=== PATIENT | female | born 1955 | race Caucasian/White ===

== ENCOUNTER 2021-10-11 08:09 | Outpatient (REF) | payer MEDICARE, SELFPAY ==
[2021-10-11 11:12] LABS: MANUAL DIFF FLAG NO
[2021-10-11 11:18] LABS: Appearance Urine TURBID; Color Urine YELLOW; Glucose Urine UA NEG (NEG); Leukocyte Esterase Urine NEG (NEG); Nitrite Urine NEG (NEG); PH 5.5 (5.0-8.0); Specific Gravity - Urine >= 1.030 (1.005-1.025); Urine Blood NEG (NEG); Urine Ketones 40 MG/DL (NEG); Urine Protein TRACE MG/DL (NEG-TRACE)
[2021-10-11 11:19] LABS: Basophils Percent Auto 0.4 % (0-2); Eosinophils Percent Auto 0.4 % (0-4); Hematocrit 41.9 % (37.0-47.0); Imm Gran Abs Auto 0.03 X10*3/uL (0.00-0.03); Imm Gran Pct Auto 0.4 % (0.0-0.4); Lymphocytes Absolute Auto 2.1 X10*3/uL (1.2-4.9); Lymphocytes Percent Auto 28.1 % (20-40); Mean Corpuscular HGB Conc 33.4 g/dl (31.0-35.0); Mean Corpuscular Hemoglobin 33.1 pg (27.0-33.0); Mean Corpuscular Volume 99.1 fL (80.0-98.0); Mean Platelet Volume 11.6 fL (9.4-12.3); Monocytes Absolute Auto 0.5 X10*3/uL (0.1-1.2); Monocytes Percent Auto 6.8 % (2-11); Neutrophils Absolute Auto 4.7 x10*3/uL (2.0-8.3); Neutrophils Percent Auto 63.9 % (45-73); Platelet Count 278 X10*3/uL (160-400); Red Blood Count 4.23 X10*6/uL (4.20-5.50); Red Cell Distribution Width 13.2 % (11.0-16.0); White Blood Count 7.4 X10*3/uL (4.8-10.8)
[2021-10-11 11:55] LABS: Alanine Aminotransferase 17 U/L (0-31); Albumin Level 4.7 g/dL (3.5-5.0); Alkaline Phosphatase 76 U/L (39-117); Anion Gap 18 (12-20); Aspartate Amino Transferase 14 U/L (5-31); Bilirubin Total 0.3 mg/dL (0.0-1.0); Blood Urea Nitrogen 11 mg/dL (9-16); Carbon Dioxide 20 mmol/L (22-29); Chloride 105 mmol/L (96-108); Cholesterol 226 mg/dL; Estimated Glomerular Filt Rate > 60; Glucose Fasting 117 mg/dL (60-99); HDL Cholesterol 61 mg/dL; LDL Cholesterol Calculated 115 mg/dl; Potassium 3.8 mmol/L (3.3-5.1); Sodium 139 mmol/L (135-145); Total Protein 7.4 g/dL (6.5-8.0); Triglycerides 252 mg/dL
== END 2021-10-11 08:10 | disposition home or self-care (01) ==
LOC: HO.HMGCLDS 08:09
PROVIDERS: PCP Internal Medicine; Visit Provider Internal Medicine
DX: E78.9 Disorder of lipoprotein metabolism, unspecified (principal); F13.20 Sedative, hypnotic or anxiolytic dependence, uncomplicated; F33.2 Major depressive disorder, recurrent severe without psychotic features; F41.9 Anxiety disorder, unspecified; I10 Essential (primary) hypertension; I73.9 Peripheral vascular disease, unspecified; R26.89 Other abnormalities of gait and mobility; R29.6 Repeated falls; Z76.89 Persons encountering health services in other specified circumstances
CPT/HCPCS: 36415; 80053; 80061; 81003; 84443; 85025

== ENCOUNTER 2022-06-03 10:17 | Outpatient (REF) | payer MEDICARE, SELFPAY ==
[2022-06-03 11:59] LABS: Alanine Aminotransferase 11 U/L (0-31); Albumin Level 4.7 g/dL (3.5-5.0); Alkaline Phosphatase 98 U/L (39-117); Anion Gap 15 (12-20); Aspartate Amino Transferase 11 U/L (5-31); Bilirubin Total 0.3 mg/dL (0.0-1.0); Blood Urea Nitrogen 11 mg/dL (9-16); Calcium 9.9 mg/dL (8.4-10.2); Carbon Dioxide 25 mmol/L (22-29); Chloride 106 mmol/L (96-108); Cholesterol 207 mg/dL; Estimated Glomerular Filt Rate > 60; Glucose Fasting 108 mg/dL (60-99); HDL Cholesterol 67 mg/dL; LDL Cholesterol Calculated 116 mg/dl; Potassium 4.8 mmol/L (3.3-5.1); Sodium 141 mmol/L (135-145); Total Protein 7.1 g/dL (6.5-8.0); Triglycerides 120 mg/dL
[2022-06-03 12:02] LABS: Estimated Average Glucose 108 mg/dL; Hemoglobin A1C 125.7971 umol/L; Hemoglobin A1c % 5.4 %
== END 2022-06-03 10:18 | disposition home or self-care (01) ==
LOC: HO.HMGCLDS 10:17
PROVIDERS: PCP Internal Medicine; Visit Provider Internal Medicine
DX: I10 Essential (primary) hypertension (principal); F41.9 Anxiety disorder, unspecified; F33.2 Major depressive disorder, recurrent severe without psychotic features; I73.9 Peripheral vascular disease, unspecified; E78.9 Disorder of lipoprotein metabolism, unspecified; R73.03 Prediabetes
CPT/HCPCS: 36415; 80053; 80061; 83036

== ENCOUNTER 2022-11-24 06:35 | Outpatient (REF) | payer MEDICARE, SELFPAY | END 2022-11-24 06:36 | disposition home or self-care (01) | LOC: HO.HMGCLDS 06:35 | PROVIDERS: PCP Internal Medicine; Visit Provider Internal Medicine | DX: E78.9 Disorder of lipoprotein metabolism, unspecified (principal); F33.2 Major depressive disorder, recurrent severe without psychotic features; F41.9 Anxiety disorder, unspecified; I10 Essential (primary) hypertension; I73.9 Peripheral vascular disease, unspecified; R73.03 Prediabetes | CPT/HCPCS: 36415; 80053; 80061; 83036; 85025 ==

== ENCOUNTER 2023-01-25 08:54 | Outpatient (AMB) | payer MEDICARE, SELFPAY ==
--- NOTE | 2023-01-25 08:57 | A.OFFVIS_ITS ---
Intake Vital Signs 01/25/23 08:59 Height 5 ft 4 in Weight 141 lb BMI 24.2 BP 110/58 L Blood Pressure Location Rt brachial Position Sitting Pulse 85 Pulse Source Pulse Oximeter Pulse Oximetry (%) 97 Oxygen Delivery Method Room Air Intake Visit Reasons: AWV [id number] Allergies No Known Allergies Allergy (Verified 01/25/23 09:01) Medication List - Last Reconciled 01/25/23 by Demetri Thomas MD amlodipine 5 mg PO DAILY buspirone 15 mg (1.5 x 10 mg) PO TID cilostazol 100 mg PO BID citalopram 40 mg PO DAILY clonidine HCl 0.1 mg PO BID PRN ezetimibe-simvastatin 10-10 mg 1 tab PO DAILY lorazepam 0.5 mg PO BID PRN Do you need a note to return to daycare/school/sports/work: No HPI HPI Comments History of Present Illness Details AWV Medical/social history reviewed Past medical history reviewed [place] of care / care team list updated Surgical/ hospitalization history reviewed Current medications including OTC and supplements reviewed Family history reviewed Tobacco controlled form updated Alcohol use form updated Illicit drug use in social history reviewed Current diagnosis of depression ?screening updated Appropriate PHQ 2/PHQ-9 completed . Vital signs reviewed Alcohol tobacco drug use reviewed and discussed . MMSE completed . ? Fall risk: ?Assessed Fall history: ?None Have you had any falls with injury in the past year?? No Have you had 2 or more falls in the past year?? No Fall risk assessment completed Home safety discussed with the patient Functional ability assessed and discussed and documented Activities of daily living reviewed and appropriate actions taken . HRA filled out by the patient and reviewed by provider and scanned . Appropriate written screening schedule established . Any health advise needed provided . Advance care planning discussed with the patient , necessary paperwork filled Examination IPPE/AWE: Balance intact Romberg intact Tandem walk FAILED walk-in turn intact rise from sit to stand intact . ?Hearing ?whisper test pass . Medication list reviewed, patient is stable on medications All other providers patient is seeing discussed and noted . PFSH Family History Brother Heart attack Sister Heart attack Father Diabetes Mother Mental health disorder Other Substance use disorder Social History Housing: House Patient Tobacco Use Status: Former Tobacco user e-Cigarette/Vaping Use: Never Used service: Yes Current occupational status: retired Cognitive needs: No Hearing needs: No Vision needs: Yes Questionnaire Medicare Wellness Checkup [age] What gender do you identify with?: female During the past 4 weeks, how much have you been bothered by emotional problems such as feeling anxious, depressed, irritable, sad or downhearted, and blue?: moderately During the past 4 weeks, has your physical & emotional health limited your social activities with family, friends, neighbors, or groups?: slightly During the past 4 weeks, how much bodily pain have you generally had?: no pain During the past 4 weeks, was someone available to help you if you needed & wanted help?: yes, as much as I wanted During the past 4 weeks, what was the hardest physical activity you could do for at least 2 minutes?: heavy Can you get to places out of walking distance without help? (For eg., can you travel alone on buses, taxis or drive your car?): Yes Can you go shopping for groceries or clothes without someone's help?: Yes Can you prepare your own meals?: Yes Can you do your housework without help?: Yes Because of any health problems, do you need the help of another person with your personal care needs such as eating, bathing, dressing or getting around the house?: No Can you handle your own money without help?: Yes During the past 4 weeks, how would you rate your health in general?: good During the past 4 weeks how have things been going for you?: good & bad parts about equal Are you having difficulties driving your car?: no Do you always fasten your seat belt when you are in a car?: yes, usually During past 4 weeks, have you been bothered by the following: never: Falling or dizzy when standing up, Sexual problems?, Trouble eating well?, Teeth or denture problems?, Problems using the telephone? and Tiredness or fatigue? Have you fallen 2 or more times in the past year?: No Are you afraid of falling?: Yes Are you a smoker?: no During the past 4 weeks, how many drinks of wine, beer, or other alcoholic beverages did you have?: 1 drink or less per week Do you exercise for about 20 minutes 3 or more times a week?: yes, some of the time Have you been given information to help with the following?: yes: Keeping track of your medications? and no: Hazards in your house that might hurt you? How often do you have trouble taking medicines the way you have been told to take them?: I always take medicine as prescribed How confident are you that you can control & manage most of your health problems?: very confident What is your race?: White Mini Mental State Exam (MMSE) Orientation What is the (year) (season) (date) (day) (month)?: year, season, date, day and month Where are we (state) (county) (town or city) (hospital) (floor)?: state, county, town or city, hospital/clinic and floor Score Score: 10 Activity of Daily Living Bathing - sponge bath, tub bath or shower: receives no assistance (gets in/out by self, if usual bathing means Dressing - getting clothes from closets & drawers, including inner/outer garments & fasteners.: gets clothes & gets completely dressed without help Toileting - going to the 'toilet room' for urine/bowel elimination & cleaning self/arranging clothes: goes to toilet room, cleans self, arranges clothes without help Transfer: moves in & out of bed and chair without help (may use support object) Continence: controls urination/bowel movements completely by self Feeding: feeds self without help Total Score: 0 Information obtained from: patient Using telephone: independent Traveling: independent Shopping: independent Preparing meals: independent Housework: independent Taking medicine: independent Managing money: independent PHQ-9 Over the last 2 weeks, how often have you been bothered by any of the following problems? 1. Little interest or pleasure in doing things: several days 2. Feeling down, depressed, or hopeless: several days 3. Trouble falling or staying asleep, or sleeping too much: not at all 4. Feeling tired or having little energy: not at all 5. Poor appetite or overeating: not at all 6. Feeling bad about yourself - or that you are a failure or have let yourself or your family down: not at all 7. Trouble concentrating on things, such as reading the newspaper or watching television: not at all 8. Moving or speaking so slowly that other people could have noticed. Or the opposite - being so fidgety or restless that you have been moving around a lot more than usual: not at all 9. Thoughts that you would be better off or of hurting yourself in some way: not at all Total score: 2 Depression Screening Interpretation: Negative 51058 - PHQ-9 Billing: Yes Source: Developed by Drs. Xiang Arguelles, Karol Powell, Martir Jones and colleagues, with an educational elsa from [employer]. Physical Exam Vital Signs: Last Vital Signs Pulse 85 01/25/23 08:59 BP 110/58 L 01/25/23 08:59 Pulse Ox 97 01/25/23 08:59 Oxygen Delivery Method Room Air 01/25/23 08:59 BMI result Body Mass Index 24.2 Assessment & Plan Assessment & Plan (1) Hypertension, essential: Code(s): I10 - Essential (primary) hypertension (2) Lipid disorder: Code(s): E78.9 - Disorder of lipoprotein metabolism, unspecified (3) Medicare annual wellness visit, initial: Code(s): Z00.00 - Encounter for general adult medical examination without abnormal findings Orders: Orders Comprehensive [place]. Panel Fast Today E78.9 - Disorder of lipoprotein metabolism, unspecified, I10 - Essential (primary) hypertension Lipid Panel Today E78.9 - Disorder of lipoprotein metabolism, unspecified, I10 - Essential (primary) hypertension Complete Blood Count Auto Diff Today E78.9 - Disorder of lipoprotein metabolism, unspecified, I10 - Essential (primary) hypertension Medications: Resumed amlodipine 5 mg PO DAILY 90 tabs 0RF amlodipine 5 mg PO DAILY 90 tabs 0RF Quality Reporting (2019) Depression/Bipolar (159/160/161/177) PHQ-9: Total score: 2 Coding Level of Care Code Medicare First (G0438) Diagnoses Hypertension, essential I10 Lipid disorder E78.9 Medicare annual wellness visit, initial Z00.00 CPT Codes Advance Care Planning - Time spent: 1-15 minutes, on File ([id number]) Advance Care Planning Advance Care Planning discussion: Completed/Scanned Date of discussion: 01/25/23 Forms completed: [facility] Time spent: 1-15 minutes, on File
[2023-01-25 08:59] VITALS: BP 110/58; PULSE 85; O2SAT 97; BMI 24.2
== END 2023-01-25 10:59 | disposition home or self-care (01) ==
PROVIDERS: Visit Provider Internal Medicine
DX: I10 Essential (primary) hypertension (principal); E78.9 Disorder of lipoprotein metabolism, unspecified; Z00.00 Encounter for general adult medical examination without abnormal findings
CPT/HCPCS: 1123F; G0438

== ENCOUNTER 2023-05-27 08:35 | Outpatient (REF) | payer MEDICARE, SELFPAY ==
[2023-05-27 11:42] LABS: Alanine Aminotransferase 13 U/L (0-31); Albumin Level 4.3 g/dL (3.5-5.0); Alkaline Phosphatase 89 U/L (39-117); Anion Gap 12 (12-20); Aspartate Amino Transferase 15 U/L (5-31); Bilirubin Total 0.4 mg/dL (0.0-1.0); Blood Urea Nitrogen 10 mg/dL (9-16); Calcium 9.5 mg/dL (8.4-10.2); Carbon Dioxide 27 mmol/L (22-29); Chloride 104 mmol/L (96-108); Cholesterol 224 mg/dL (<200); Estimated Glomerular Filt Rate > 60; Glucose Fasting 96 mg/dL (60-99); HDL Cholesterol 80 mg/dL (>40); LDL Cholesterol Calculated 117 mg/dL (<100); Potassium 4.4 mmol/L (3.3-5.1); Sodium 139 mmol/L (135-145); Total Protein 7.3 g/dL (6.5-8.0); Triglycerides 136 mg/dL (<150)
[2023-05-29 23:24] LABS: LDL Cholesterol Direct 121 mg/dL (<100)
== END 2023-05-27 08:36 | disposition home or self-care (01) ==
LOC: HO.HMGCLDS 08:35
PROVIDERS: PCP Internal Medicine; Visit Provider Internal Medicine
DX: I10 Essential (primary) hypertension (principal); F41.9 Anxiety disorder, unspecified; F33.2 Major depressive disorder, recurrent severe without psychotic features; E78.9 Disorder of lipoprotein metabolism, unspecified; R73.03 Prediabetes
CPT/HCPCS: 36415; 80053; 80061; 83721; 85025

== ENCOUNTER 2023-05-30 08:33 | Outpatient (AMB) | payer MEDICARE, SELFPAY ==
[2023-05-30 08:43] VITALS: BP 108/62; PULSE 84; O2SAT 96; BMI 24.5
--- NOTE | 2023-05-30 08:43 | MHC.PC.OV ---
Vital Signs 05/30/23 08:43 Height 5 ft 4 in Weight 142 lb 8 oz BMI 24.5 BP 108/62 Blood Pressure Location Lt brachial Position Sitting Pulse 84 Pulse Source Pulse Oximeter Pulse Oximetry (%) 96 Oxygen Delivery Method Room Air Intake Visit Reasons: 6 month follow up anxiety Allergies No Known Allergies Allergy (Verified 05/30/23 08:46) Medication List - Last Reconciled 05/30/23 by Demetri Thomas MD amlodipine 5 mg PO DAILY buspirone 15 mg (1.5 x 10 mg) PO TID cilostazol 100 mg PO BID citalopram 40 mg PO DAILY ezetimibe-simvastatin 10-10 mg 1 tab PO DAILY lorazepam 0.5 mg PO BID PRN Tobacco use date assessed: 05/30/23 Fall risk assessment: No Falls in past year Last assessed Fall Risk: 05/30/23 Dental Screening Dental Screen Date: 05/30/23 Did you have a dental visit in the last 12 months?: No Did you have a dental problem in the last 6 months where you did not have access to dental care?: No Was dental information given to patient?: No HPI 6 month follow up anxiety HPI Details Patient is 68-year-old female, this is a regular follow-up visit.? Patient have a history of severe anxiety depression currently seeing psychiatrist all psych medications through them, patient is benzodiazepine dependent, she is also on buspirone and citalopram Pre diabetes: Controlling diet Hypertension : Stable Lipid disorder:? Patient is on simvastatin and Zetia 10 mg each.? History of total hysterectomy, she does have an OBGYN doctor [facility], mammograms through them Colonoscopy was 6 years ago it was normal as per patient she is not due until 2025. Peripheral vascular disease patient is on cilostazol 100 mg b.i.d..? Doing well no cramps or pain in legs, refill sent only 2 meds from PCP office simvastatin and cilostazol Follow-up in September labs are needed before visit PFSH Family History Brother Heart attack Sister Heart attack Father Diabetes Mother Mental health disorder Other Substance use disorder Social History Housing: House Patient Tobacco Use Status: Former Tobacco user e-Cigarette/Vaping Use: Never Used service: Yes Current occupational status: retired Cognitive needs: No Hearing needs: No Vision needs: Yes Questionnaire PHQ-9 Over the last 2 weeks, how often have you been bothered by any of the following problems? 1. Little interest or pleasure in doing things: several days 2. Feeling down, depressed, or hopeless: several days 3. Trouble falling or staying asleep, or sleeping too much: several days 4. Feeling tired or having little energy: several days 5. Poor appetite or overeating: not at all 6. Feeling bad about yourself - or that you are a failure or have let yourself or your family down: not at all 7. Trouble concentrating on things, such as reading the newspaper or watching television: not at all 8. Moving or speaking so slowly that other people could have noticed. Or the opposite - being so fidgety or restless that you have been moving around a lot more than usual: not at all 9. Thoughts that you would be better off or of hurting yourself in some way: not at all Total score: 4 Depression Screening Interpretation: Negative Depression Screening Done: Yes 23303 - PHQ-9 Billing: Yes Source: Developed by Drs. Xiang Arguelles, Karol Powell, Martir Jones and colleagues, with an educational elsa from [employer]. Thrive Questionnaire Date Thrive assessed: 05/30/23 I am a: Patient What is your living situation today?: I have a steady place to live Within the past 12 months, did the food you bought not last and you didn't have the money to get more?: Never true Within the past 12 months, did you worry whether your food would run out before you got money to buy more?: Never true Do you have trouble paying for medicines?: No Do you have trouble getting transportation to medical appointments?: No Do you have trouble paying your heating and electricity bill?: No Do you have trouble taking care of your child, family member or friend?: No Do you have trouble with day-to-day activities such as bathing, preparing meals, shopping, managing finances, etc.?: No Are you currently unemployed and looking for a job?: No Are you interested in more education?: No Please select the resources that you would like help with: None Currently or been in a relationship where the following occur: no concerns reported AUDIT C Alcohol Use Questionnaire (AUDIT-C) 1. How often do you have a drink containing alcohol?: Never 3. How often do you have six or more drinks on one occasion?: Never Total Score: 0 Score Reviewed/Action Taken: Yes ANABEL-7 AMB Questionnaire ANABEL-7 Date ANABEL - 7 assessed: 05/30/23 Feeling nervous, anxious, or on edge: 1 = Several days Not being able to stop or control worryin = Several days Worrying too much about different things: 1 = Several days Trouble relaxin = Several days Being so restless that it is hard to sit still: 1 = Several days Becoming easily annoyed or irritable: 1 = Several days Feeling afraid as if something awful might happen: 1 = Several days Total ANABEL-7 score (0-4 normal; 5-9 mild; 10-14 moderate; 15-21 severe): 7 Source: Developed by Drs. Xiang Arguelles, Karol Powell, Martir Jones and colleagues, with an educational elsa from [employer]. ANABEL-7 Assessment Billing ANABEL-7 Assessment Tool: ANABEL-7 Assessment 69907 Review of Systems Const Denies chills and Denies fever(s) ENT Denies epistaxis and Denies nasal discharge Card Denies chest pain Resp Denies chest congestion, Denies cough and Denies hemoptysis GI Denies diarrhea and Denies nausea Skin/Breast Denies rash Neuro Reports no additional complaints Psych Reports no additional complaints Endo Reports no additional complaints Physical exam (Primary Care) Vital Signs: Last Vital Signs Pulse 84 05/30/23 08:43 BP 108/62 05/30/23 08:43 Pulse Ox 96 05/30/23 08:43 Oxygen Delivery Method Room Air 05/30/23 08:43 BMI result Body Mass Index 24.5 Tobacco/Smoking Status: Tobacco use Status Tobacco use date assessed 05/30/23 05/30/23 08:46 Patient Tobacco Use Status Former Tobacco user 05/30/23 08:43 e-Cigarette/Vaping Use Never Used 05/30/23 08:43 PHQ-9: PHQ-9 Score PHQ-9: Total score 4 05/30/23 10:08 Depression Screening Interpretation: Negative Thrive Assessment: Date of Thrive Assessment Date Thrive assessed 05/30/23 05/30/23 09:11 Currently or been in a relationship where the following occur: no concerns reported Const General: cooperative, comfortable and no acute distress Orientation/consciousness: patient oriented x3 HENMT Head: Yes normocephalic Eyes General: appearance normal, both eyes and all related structures Neck Neck: Yes supple Resp Effort & Inspection: normal respiratory effort, no cough and no stridor Cardio Rhythm: regular rhythm Heart sounds: S1 normal heart sound present and S2 normal heart sound present Skin General skin exam: turgor normal Neuro General: patient oriented x3, tone normal and moves all extremities Extrem Right lower extremity: no edema Left lower extremity: no edema Assessment and Plan Assessment & Plan (1) Hypertension, essential: Code(s): I10 - Essential (primary) hypertension (2) Severe anxiety: Code(s): F41.9 - Anxiety disorder, unspecified (3) Depression, major, severe recurrence: Code(s): F33.2 - Major depressive disorder, recurrent severe without psychotic features Qualifiers: Psychotic features: without psychotic features Qualified Code(s): F33.2 - Major depressive disorder, recurrent severe without psychotic features (4) Peripheral vascular disease: Code(s): I73.9 - Peripheral vascular disease, unspecified (5) Lipid disorder: Code(s): E78.9 - Disorder of lipoprotein metabolism, unspecified (6) Benzodiazepine dependence: Code(s): F13.20 - Sedative, hypnotic or anxiolytic dependence, uncomplicated (7) Pre-diabetes: Code(s): R73.03 - Prediabetes Plan Patient is 68-year-old female, this is a regular follow-up visit.? Patient have a history of severe anxiety depression currently seeing psychiatrist all psych medications through them, patient is benzodiazepine dependent, she is also on buspirone and citalopram Pre diabetes: Controlling diet Hypertension : Stable Lipid disorder:? Patient is on simvastatin and Zetia 10 mg each.? History of total hysterectomy, she does have an OBGYN doctor [facility]ette, mammograms through them Colonoscopy was 6 years ago it was normal as per patient she is not due until 2025. Peripheral vascular disease patient is on cilostazol 100 mg b.i.d..? Doing well no cramps or pain in legs, refill sent only 2 meds from PCP office simvastatin and cilostazol Follow-up in September labs are needed before visit Orders: Orders Comprehensive Met. Panel Today E78.9 - Disorder of lipoprotein metabolism, unspecified, F13.20 - Sedative, hypnotic or anxiolytic dependence, uncomplicated, F33.2 - Major depressive disorder, recurrent severe without psychotic features, F41.9 - Anxiety disorder, unspecified, I10 - Essential (primary) hypertension, I73.9 - Peripheral vascular disease, unspecified, R73.03 - Prediabetes Complete Blood Count Auto Diff 3 Months E78.9 - Disorder of lipoprotein metabolism, unspecified, F13.20 - Sedative, hypnotic or anxiolytic dependence, uncomplicated, F33.2 - Major depressive disorder, recurrent severe without psychotic features, F41.9 - Anxiety disorder, unspecified, I10 - Essential (primary) hypertension, I73.9 - Peripheral vascular disease, unspecified, R73.03 - Prediabetes LDL Cholesterol Direct Today E78.9 - Disorder of lipoprotein metabolism, unspecified, F13.20 - Sedative, hypnotic or anxiolytic dependence, uncomplicated, F33.2 - Major depressive disorder, recurrent severe without psychotic features, F41.9 - Anxiety disorder, unspecified, I10 - Essential (primary) hypertension, I73.9 - Peripheral vascular disease, unspecified, R73.03 - Prediabetes Medications: Changed From cilostazol 100 mg PO BID To cilostazol 100 mg PO BID 180 tabs 0RF 90 days Coding Level of Care Code Est Pt Level 4 (71811) Diagnoses Hypertension, essential I10 Severe anxiety F41.9 Severe episode of recurrent major depressive disorder, without psychotic features F33.2 Psychotic features: without psychotic features Peripheral vascular disease I73.9 Lipid disorder E78.9 Benzodiazepine dependence F13.20 Pre-diabetes R73.03 Additional Codes ANABEL-7 Assessment Billing - ANABEL-7 Assessment Tool: ANABEL-7 Assessment [id number] ([id number])
== END 2023-05-30 09:44 | disposition home or self-care (01) ==
PROVIDERS: PCP Internal Medicine; Visit Provider Internal Medicine
DX: I73.9 Peripheral vascular disease, unspecified (principal); F13.20 Sedative, hypnotic or anxiolytic dependence, uncomplicated; F33.2 Major depressive disorder, recurrent severe without psychotic features; I10 Essential (primary) hypertension; F41.9 Anxiety disorder, unspecified; E78.9 Disorder of lipoprotein metabolism, unspecified; R73.03 Prediabetes
CPT/HCPCS: 99214

== ENCOUNTER 2023-09-26 09:04 | Outpatient (REF) | payer MEDICARE, SELFPAY ==
[2023-09-26 10:16] LABS: MANUAL DIFF FLAG NO
[2023-09-26 10:31] LABS: Basophils Percent Auto 0.5 % (0-2); Eosinophils Percent Auto 0.3 % (0-4); Hematocrit 40.8 % (37.0-47.0); Hemoglobin 13.8 g/dl (12.0-16.0); Imm Gran Abs Auto 0.05 X10*3/uL (0.00-0.03); Imm Gran Pct Auto 0.6 % (0.0-0.4); Lymphocytes Absolute Auto 2.4 X10*3/uL (1.2-4.9); Lymphocytes Percent Auto 26.7 % (20-40); Mean Corpuscular HGB Conc 33.8 g/dl (31.0-35.0); Mean Corpuscular Hemoglobin 32.8 pg (27.0-33.0); Mean Corpuscular Volume 96.9 fL (80.0-98.0); Mean Platelet Volume 10.8 fL (9.4-12.3); Monocytes Absolute Auto 0.7 X10*3/uL (0.1-1.2); Monocytes Percent Auto 7.3 % (2-11); Neutrophils Absolute Auto 5.7 x10*3/uL (2.0-8.3); Neutrophils Percent Auto 64.6 % (45-73); Platelet Count 319 X10*3/uL (160-400); Red Blood Count 4.21 X10*6/uL (4.20-5.50); Red Cell Distribution Width 13.6 % (11.0-16.0); White Blood Count 8.9 X10*3/uL (4.8-10.8)
== END 2023-09-26 09:05 | disposition home or self-care (01) ==
LOC: HO.HMGCLDS 09:04
PROVIDERS: PCP Internal Medicine; Visit Provider Internal Medicine
DX: I10 Essential (primary) hypertension (principal); F41.9 Anxiety disorder, unspecified; F33.2 Major depressive disorder, recurrent severe without psychotic features; I73.9 Peripheral vascular disease, unspecified; E78.9 Disorder of lipoprotein metabolism, unspecified; F13.20 Sedative, hypnotic or anxiolytic dependence, uncomplicated; R73.03 Prediabetes
CPT/HCPCS: 36415; 85025

== ENCOUNTER 2023-09-27 08:34 | Outpatient (AMB) | payer MEDICARE, SELFPAY ==
[2023-09-27 08:36] VITALS: BP 114/72; PULSE 84; O2SAT 95; BMI 25.1
--- NOTE | 2023-09-27 08:36 | A.OFFPC_ITS ---
Vital Signs 09/27/23 08:36 Height 5 ft 4 in Weight 146 lb 6 oz BMI 25.1 BP 114/72 Blood Pressure Location Rt brachial Position Sitting Pulse 84 Pulse Source Pulse Oximeter Pulse Oximetry (%) 95 Oxygen Delivery Method Room Air Intake Visit Reasons: 4 month fu Allergies No Known Allergies Allergy (Verified 09/27/23 08:39) Medication List - Last Reconciled 09/27/23 by Demetri Thomas MD amlodipine 5 mg PO DAILY buspirone 15 mg (1.5 x 10 mg) PO TID cilostazol 100 mg PO BID 90 days citalopram 40 mg PO DAILY ezetimibe-simvastatin 10-10 mg 1 tab PO DAILY lorazepam 0.5 mg PO BID PRN Tobacco use date assessed: 09/27/23 Fall risk assessment: No Falls in past year Last assessed Fall Risk: 09/27/23 Dental Screening Dental Screen Date: 09/27/23 Did you have a dental visit in the last 12 months?: No Did you have a dental problem in the last 6 months where you did not have access to dental care?: No Was dental information given to patient?: No HPI 4 month fu HPI Details Patient is 68-year-old female, this is a regular follow-up visit.? Patient says that she has been having chest pain off and on for the past 1 month Patient could not tell me if it is related to activities or eating She is also complaining of fecal incontinence since May off and on Patient says that when she coughs or laughs little bit of stool comes out She is due for a colonoscopy 2025, last colonoscopy was within normal limit as per patient I have placed referral to Colorectal for evaluation EKG done today showed no acute T or ST findings, possible left atrial enlargement I have ordered echocardiogram for the patient and I will also refer her to Cardiology for further evaluation since she does have history of high lipids and hypertension Meanwhile I am also prescribing PPI for patient Patient have a history of severe anxiety depression currently seeing psychiatrist all psych medications through them, patient is benzodiazepine dependent, she is also on buspirone and citalopram Pre diabetes: Controlling diet Hypertension : Stable Lipid disorder:? Patient is on simvastatin and Zetia 10 mg each.? History of total hysterectomy, she does have an OBGYN doctor Lanette, mammograms through them Peripheral vascular disease patient is on cilostazol 100 mg b.i.d..? Doing well no cramps or pain in legs, refill sent meds from PCP office simvastatin and cilostazol and amlodipine Follow-up January for Medicare wellness visit, and 3 weeks for chest discomfort after starting PPI telemedicine [facility] Family History Brother Heart attack Sister Heart attack Father Diabetes Mother Mental health disorder Other Substance use disorder Social History Housing: House Patient Tobacco Use Status: Former Tobacco user e-Cigarette/Vaping Use: Never Used service: Yes Current occupational status: retired Cognitive needs: No Hearing needs: No Vision needs: Yes Questionnaire Thrive Questionnaire Date Thrive assessed: 05/30/23 AUDIT C Alcohol Use Questionnaire (AUDIT-C) 1. How often do you have a drink containing alcohol?: Monthly or less 2. How many drinks containing alcohol do you have on a typical day when you are drinking?: 1 or 2 3. How often do you have six or more drinks on one occasion?: Never Total Score: 1 Score Reviewed/Action Taken: Yes ANABEL-7 AMB Questionnaire ANABEL-7 Date ANABEL - 7 assessed: 05/30/23 Source: Developed by Drs. Xiang Arguelles, Karol Powell, Martir Jones and colleagues, with an educational elsa from [employer]. Review of Systems Const Denies chills and Denies fever(s) Eyes Denies blurry vision and Denies eye pain ENT Denies epistaxis, Denies nasal discharge, Denies throat swelling and Denies tongue swelling Card Denies paroxysmal nocturnal dyspnea Resp Denies chest congestion, Denies cough and Denies hemoptysis GI Denies diarrhea and Denies nausea Musc Reports as per HPI Skin/Breast Denies rash Neuro Reports no additional complaints Psych Reports no additional complaints Endo Reports no additional complaints Aller/Immun Denies throat swelling and Denies tongue swelling Physical exam (Primary Care) Vital Signs: Last Vital Signs Pulse 84 09/27/23 08:36 BP 114/72 09/27/23 08:36 Pulse Ox 95 09/27/23 08:36 Oxygen Delivery Method Room Air 09/27/23 08:36 BMI result Body Mass Index 25.1 Tobacco/Smoking Status: Tobacco use Status Tobacco use date assessed 09/27/23 09/27/23 08:39 Patient Tobacco Use Status Former Tobacco user 09/27/23 08:39 e-Cigarette/Vaping Use Never Used 09/27/23 08:39 Thrive Assessment: Date of Thrive Assessment Date Thrive assessed 05/30/23 09/27/23 08:39 Const General: cooperative, comfortable and no acute distress Orientation/consciousness: patient oriented x3 HENMT Head: Yes normocephalic Ears: hearing grossly normal bilaterally Eyes General: appearance normal, both eyes and all related structures Neck Neck: Yes supple Resp Effort & Inspection: normal respiratory effort, no cough and no stridor Cardio Rhythm: regular rhythm Heart sounds: S1 normal heart sound present and S2 normal heart sound present GI Palpation (GI): Soft to palpation and nontender Auscultation: normal bowel sounds Skin General skin exam: turgor normal Neuro General: patient oriented x3, tone normal and moves all extremities Gait exam (Neuro): Normal gait present Extrem Right lower extremity: no edema Left lower extremity: no edema Psych Affect: normal affect Attitude: cooperative Office Procedures EKG [id number], Complete Assessment and Plan Assessment & Plan (1) Stool incontinence: Code(s): R15.9 - Full incontinence of feces Qualifiers: Fecal incontinence type: fecal smearing Qualified Code(s): R15.1 - Fecal smearing (2) Chest pain: Code(s): R07.9 - Chest pain, unspecified Qualifiers: Chest pain type: other chest pain Qualified Code(s): R07.89 - Other chest pain (3) Hypertension, essential: Code(s): I10 - Essential (primary) hypertension (4) Severe anxiety: Code(s): F41.9 - Anxiety disorder, unspecified (5) Depression, major, severe recurrence: Code(s): F33.2 - Major depressive disorder, recurrent severe without psychotic features Qualifiers: Psychotic features: without psychotic features Qualified Code(s): F33.2 - Major depressive disorder, recurrent severe without psychotic features (6) Peripheral vascular disease: Code(s): I73.9 - Peripheral vascular disease, unspecified (7) Lipid disorder: Code(s): E78.9 - Disorder of lipoprotein metabolism, unspecified (8) Benzodiazepine dependence: Code(s): F13.20 - Sedative, hypnotic or anxiolytic dependence, uncomplicated (9) Pre-diabetes: Code(s): R73.03 - Prediabetes Plan Patient is 68-year-old female, this is a regular follow-up visit.? Patient says that she has been having chest pain off and on for the past 1 month Patient could not tell me if it is related to activities or eating She is also complaining of fecal incontinence since May off and on Patient says that when she coughs or laughs little bit of stool comes out She is due for a colonoscopy 2025, last colonoscopy was within normal limit as per patient I have placed referral to Colorectal for evaluation EKG done today showed no acute T or ST findings, possible left atrial enlargement I have ordered echocardiogram for the patient and I will also refer her to Cardiology for further evaluation since she does have history of high lipids and hypertension Meanwhile I am also prescribing PPI for patient Patient have a history of severe anxiety depression currently seeing psychiatrist all psych medications through them, patient is benzodiazepine dependent, she is also on buspirone and citalopram Pre diabetes: Controlling diet Hypertension : Stable Lipid disorder:? Patient is on simvastatin and Zetia 10 mg each.? History of total hysterectomy, she does have an OBGYN doctor Lanette, mammograms through them Peripheral vascular disease patient is on cilostazol 100 mg b.i.d..? Doing well no cramps or pain in legs, refill sent meds from PCP office simvastatin and cilostazol and amlodipine Follow-up January for Medicare wellness visit, and 3 weeks for chest discomfort after starting PPI telemedicine 50 minute spent in care of this patient including [id number], examination, EKG, referrals, charting Coordination of care Orders: Orders CA echo transthoracic complete Today E78.9 - Disorder of lipoprotein metabolism, unspecified, I10 - Essential (primary) hypertension, R07.89 - Other chest pain Lipid Panel 5 Months E78.9 - Disorder of lipoprotein metabolism, unspecified, F33.2 - Major depressive disorder, recurrent severe without psychotic features, F41.9 - Anxiety disorder, unspecified, I10 - Essential (primary) hypertension, I73.9 - Peripheral vascular disease, unspecified AMB EKG-In Office Today R07.9 - Chest pain, unspecified Comprehensive [place]. Panel Fast 5 Months E78.9 - Disorder of lipoprotein metabolism, unspecified, F33.2 - Major depressive disorder, recurrent severe without psychotic features, F41.9 - Anxiety disorder, unspecified, I10 - Essential (primary) hypertension, I73.9 - Peripheral vascular disease, unspecified Complete Blood Count Auto Diff 5 Months E78.9 - Disorder of lipoprotein metabolism, unspecified, F33.2 - Major depressive disorder, recurrent severe without psychotic features, F41.9 - Anxiety disorder, unspecified, I10 - Essential (primary) hypertension, I73.9 - Peripheral vascular disease, unspecified TSH reflex Free T4 5 Months E78.9 - Disorder of lipoprotein metabolism, unspecified, F33.2 - Major depressive disorder, recurrent severe without psychotic features, F41.9 - Anxiety disorder, unspecified, I10 - Essential (primary) hypertension, I73.9 - Peripheral vascular disease, unspecified Referrals Colon & Rectal Referral R15.9 - Full incontinence of feces Cardiology Referral E78.9 - Disorder of lipoprotein metabolism, unspecified, I10 - Essential (primary) hypertension, R07.89 - Other chest pain Medications: New pantoprazole 40 mg PO DAILY 30 tabs 0RF Coding Level of Care Code Est Pt Level 5 (27809) Complex EM visit Add On G2211 Diagnoses Fecal smearing R15.1 Fecal incontinence type: fecal smearing Other chest pain R07.89 Chest pain type: other chest pain Hypertension, essential I10 Severe anxiety F41.9 Severe episode of recurrent major depressive disorder, without psychotic features F33.2 Psychotic features: without psychotic features Peripheral vascular disease I73.9 Lipid disorder E78.9 Benzodiazepine dependence F13.20 Pre-diabetes R73.03 CPT Codes EKG - CPT: 38252-[id number], Complete ([id number])
== END 2023-09-27 11:57 | disposition home or self-care (01) ==
PROVIDERS: PCP Internal Medicine; Visit Provider Internal Medicine
DX: I73.9 Peripheral vascular disease, unspecified (principal); F33.2 Major depressive disorder, recurrent severe without psychotic features; F13.20 Sedative, hypnotic or anxiolytic dependence, uncomplicated; R15.1 Fecal smearing; R07.89 Other chest pain; I10 Essential (primary) hypertension; E78.9 Disorder of lipoprotein metabolism, unspecified; F41.9 Anxiety disorder, unspecified; R73.03 Prediabetes
CPT/HCPCS: 93000; 99215; G2211

== ENCOUNTER 2023-10-19 07:34 | Outpatient (AMB) | payer MEDICARE, SELFPAY ==
--- NOTE | 2023-10-19 08:29 | A.OFFPC_ITS ---
Intake Visit Reasons: 3Wk F/u~ [phone] Allergies No Known Allergies Allergy (Verified 10/19/23 08:30) Medication List - Last Reconciled 10/19/23 by Demetri Thomas MD amlodipine 5 mg PO DAILY buspirone 15 mg (1.5 x 10 mg) PO TID cilostazol 100 mg PO BID 90 days citalopram 40 mg PO DAILY ezetimibe-simvastatin 10-10 mg 1 tab PO DAILY lorazepam 0.5 mg PO BID PRN pantoprazole 40 mg PO DAILY Tobacco use date assessed: 10/19/23 Fall risk assessment: No Falls in past year Last assessed Fall Risk: 10/19/23 Dental Screening Dental Screen Date: 10/19/23 Did you have a dental visit in the last 12 months?: No Did you have a dental problem in the last 6 months where you did not have access to dental care?: No Was dental information given to patient?: No HPI 3Wk F/u~ [phone] HPI Details This is a telemedicine conference follow-up Patient is 68-year-old female this is a follow-up from last week Patient verbalized to feeling chest pains off and on, she was not sure if they are related to eating But as per her history it seems as if she is having heartburn. I started her on PPI, patient has been taking that 1 in the morning daily Patient says that 2 days after starting the medication her chest pain disappeared. She is feeling well now and would like to continue the medication. PFSH Family History Brother Heart attack Sister Heart attack Father Diabetes Mother Mental health disorder Other Substance use disorder Social History Housing: House Patient Tobacco Use Status: Former Tobacco user e-Cigarette/Vaping Use: Never Used service: Yes Current occupational status: retired Cognitive needs: No Hearing needs: No Vision needs: Yes Questionnaire Thrive Questionnaire Date Thrive assessed: 05/30/23 AUDIT C Alcohol Use Questionnaire (AUDIT-C) 1. How often do you have a drink containing alcohol?: Monthly or less 2. How many drinks containing alcohol do you have on a typical day when you are drinking?: 1 or 2 3. How often do you have six or more drinks on one occasion?: Never Total Score: 1 Score Reviewed/Action Taken: Yes ANABLE-7 AMB Questionnaire ANABEL-7 Date ANABEL - 7 assessed: 05/30/23 Source: Developed by Drs. Xiang Arguelles, Karol Powell, Martir Jones and colleagues, with an educational elsa from [employer]. Review of Systems Const Denies chills and Denies fever(s) ENT Denies epistaxis and Denies nasal discharge Card Denies chest pain Resp Denies chest congestion, Denies cough and Denies hemoptysis GI Denies diarrhea and Denies nausea Skin/Breast Denies rash Neuro Reports no additional complaints Psych Reports no additional complaints Endo Reports no additional complaints Physical exam (Primary Care) Tobacco/Smoking Status: Tobacco use Status Tobacco use date assessed 10/19/23 10/19/23 08:31 Patient Tobacco Use Status Former Tobacco user 10/19/23 08:31 e-Cigarette/Vaping Use Never Used 10/19/23 08:31 Thrive Assessment: Date of Thrive Assessment Date Thrive assessed 05/30/23 10/19/23 08:31 Telehealth Telehealth Telehealth Platform: [employer] Location of provider rendering services: practice address Location of patient: address on file Patient Identification confirmed using: Name, : Yes Telehealth method: video (Attempted) Patient verbally consented to treatment: Yes Patient verbally consented to billing insurance company: Yes Patient informed of any privacy concerns related to visit: Yes Minutes spent on Phone/Video with Pt.: 12 Assessment and Plan Assessment & Plan (1) Acid reflux: Code(s): K21.9 - Gastro-esophageal reflux disease without esophagitis Qualifiers: Esophagitis bleeding: without hemorrhage Esophagitis presence: with esophagitis Qualified Code(s): K21.00 - Gastro-esophageal reflux disease with esophagitis, without bleeding (2) Atypical chest pain: Code(s): R07.89 - Other chest pain Plan This is a telemedicine conference follow-up Patient is 68-year-old female this is a follow-up from last week Patient verbalized to feeling chest pains off and on, she was not sure if they are related to eating But as per her history it seems as if she is having heartburn. I started her on PPI, patient has been taking that 1 in the morning daily Patient says that 2 days after starting the medication her chest pain disappeared. She is feeling well now and would like to continue the medication. Medications: Changed From pantoprazole 40 mg PO DAILY 30 tabs 0RF To pantoprazole 20 mg PO DAILY 90 tabs 0RF Coding Level of Care Code Tele Est Pt Level 3 (93485) Diagnoses Gastroesophageal reflux disease with esophagitis without hemorrhage K21.00 Esophagitis bleeding: without hemorrhage Esophagitis presence: with esophagitis Atypical chest pain R07.89
== END 2023-10-19 09:00 | disposition home or self-care (01) ==
PROVIDERS: PCP Internal Medicine; Visit Provider Internal Medicine
DX: K21.00 Gastro-esophageal reflux disease with esophagitis, without bleeding (principal); R07.89 Other chest pain
CPT/HCPCS: 99442

== ENCOUNTER → 2023-10-25 07:47 | Outpatient (REF) | payer MEDICARE, SELFPAY ==
--- NOTE | 2023-10-25 07:49 | CA_ITS ---
Transthoracic Echocardiogram Patient (Last, First, Middle): Dea Simmons A Gender: Female Date of : 1955 Age: 68 Procedure Date: 10/25/2023 Procedure Type: Transthoracic Echocardiogram Location: OP Height: 162.56 cm Weight: 66.23 kg BSA: 1.71 m2 Heart Rate: bpm BP: 110 / 68 mmHg [employer]airing Supervisor: TO Referring MD: Demetri Thomas MD Production Assistant: Bruce Meredith MD Symptoms: R07.89 - Other chest pain Study Quality: Fair/Contrast ECG Rhythm: Sinus Conclusions: - 1. Normal LV ejection fraction of 65-70% with impaired relaxation filling pattern 2. Normal cardiac valvular Doppler 3. Normal RV systolic pressure 4. Upper limits of normal ascending aortic aorta size at 3.5 cm 5. No gross pericardial effusion Findings Procedure Information Contrast agent, definity, is being given per protocol without apparent complications. Left Ventricle Normal left ventricular size, thickness, and systolic function. The visually estimated ejection fraction is between 65-70%. Spectral Doppler is indicative of an impaired relaxation filling pattern. E/E prime ratio is between 8 and 15 consistent with indeterminate filling pressures. Right Ventricle Normal right ventricular cavity size and systolic function. Atria The left atrium is likely dilated. There is lipomatous hypertrophy of the interatrial septum. There is no evidence of interatrial shunt. The right atrium is normal in size. Aortic Valve There is mild calcification of the aortic valve. There is no aortic valve stenosis. There is no aortic valve regurgitation. Mitral Valve Likely normal mitral valve structure and function. There is trace mitral valve regurgitation. There is no mitral valve stenosis. Pulmonic Valve The pulmonic valve was not well visualized. Tricuspid Valve Likely normal tricuspid valve structure and function. There is trace tricuspid valve regurgitation. The right ventricular systolic pressure is normal. The right ventricular systolic pressure is 27 mmHg. Normal right atrial pressure. There is no evidence of pulmonary hypertension. Great Vessels The pulmonary artery was not well visualized. There is no dilatation of the ascending aorta measuring 3.50 cm. Small plaque is seen in the sino tubular ridge. Venous The inferior vena cava is normal in size and collapses greater than 50% with inspiration. Pericardium/Pleural There is no evidence of pericardial effusion. Prior Study Comparison No prior study available for comparison. Measurements 2D Linear Measurements IVSd: 1.15 0.6-0.9/0.6-1.0 cm LVIDd: 4.53 3.9-5.3/4.2-5.9 cm LVIDd Index: 2.65 2.4-3.2/2.2-3.1 cm/m2 LVIDs: 3.20 2.0-3.6 cm LVPWd: 0.77 0.7-1.1 cm LA Diam: 3.70 2.7-3.8/3.0-4.0 cm LAIDs Index: 2.16 1.5-2.3 cm/m2 LV Mass: 182.52 67-162/88-224 g LV Mass Index: 106.74 43-95/49-115 g/m2 LVOT Diam: 2.00 3.0+(-)1.3 cm 2D Systolic Function EF 4C: 66.20 >55% Mitral Valve MV Pk E: 0.82 MV PK A: 0.93 MV Decel Time: 248.00 E/A: 0.90 E'Lateral: 6.42 E'Medial: 5.22 E/E' Med: 15.80 E/E' Lat: 12.80 PHT: 73.00 MVA PHT: 3.01 Decel [place]: 3.32 Aortic Valve AoV Pk Shree: 1.70 AoV Mn Shree: 1.05 AoV VTI: 0.36 AoV Pk Grad: 12.00 Aov Mn Grad: 5.00 JOY Cont.VTI: 2.39 LVOT LVOT Pk Shree: 1.34 LVOT Mn Shree: 0.79 LVOT VTI: 0.28 LVOT Pk Grad: 7.00 LVOT Mn Grad: 3.00 LVOT Diam: 2.00 LVOT Area: 3.14 Diastolic Function MV Pk E: 0.82 MV Pk A: 0.93 E/A: 0.90 E'Medial: 5.22 E/E' Med: 15.80 E' Laterial: 6.42 E/E' Lat: 12.80 Right Ventricle TAPSE (mm): 25.00 TVS' Shree: 13.50 Tricuspid Valve TR Pk Shree: 2.44 TR Pk Grad: 24.00 RA Press: 3.00 RVSP: 27.00 Great Vessels Aorta Sinus of Valsalva: 2.92 2.0-3.5 cm Ao Asc: 3.50 2.1-3.4 cm Ao Arch: 2.10 Updated in Other Vendor System with Status of Final Bruce Meredith MD electronically signed on 10/25/2023 5:00:08 PM with status of Final
== END ==
LOC: HO.CARD 07:47
PROVIDERS: PCP Internal Medicine; Visit Provider Internal Medicine
DX: R07.89 Other chest pain (principal); I10 Essential (primary) hypertension; E78.9 Disorder of lipoprotein metabolism, unspecified
CPT/HCPCS: 93306; Q9957

== ENCOUNTER → 2023-10-25 07:49 | Outpatient (BNV) | payer MEDICARE, SELFPAY | PROVIDERS: PCP Internal Medicine; Visit Provider Internal Medicine Cardiovascular Disease | DX: I35.8 Other nonrheumatic aortic valve disorders (principal) | CPT/HCPCS: 93306 ==

== ENCOUNTER 2023-12-12 12:13 | Outpatient (AMB) | payer MEDICARE, SELFPAY ==
[2023-12-12 12:31] VITALS: BP 120/74; PULSE 91; BMI 25.4
--- NOTE | 2023-12-12 12:31 | MHC.OFFVIS ---
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 Patient is a 68-year-old female with prior history of smoking leading to peripheral vascular disease but has not seen a vascular specialist for many many years. She is on cilostazol and since stopping smoking her leg pain has improved. She does not exercise much and recently had a left calcaneal fracture which is currently being treated with conservative means. Patient does have prior history of prediabetes, hypertension, hyperlipidemia currently on medications well controlled. She started having recently symptoms of chest discomfort which is retrosternal burning discomfort not happening with rest per happening with foods. She was then prescribed pantoprazole. Symptoms improved but still continues to have symptoms. She is referred here for further evaluation. [facility] Family History Brother Heart attack Sister Heart attack Father Diabetes Mother Mental health disorder Other Substance use disorder Social History Housing: House Patient Tobacco Use Status: Former Tobacco user e-Cigarette/Vaping Use: Never Used service: Yes Current occupational status: retired Cognitive needs: No Hearing needs: No Vision needs: Yes Review of Systems Const Denies chills, Denies daytime sleepiness, Denies fatigue, Denies fever(s), Denies frequent falls, Denies poor appetite, Denies snoring, Denies stops breathing during sleep, Denies weakness, Denies weight gain and Denies weight loss Eyes Denies loss of vision ENT Denies dizziness and Denies hearing loss Card Denies chest pain, Denies claudication, Denies leg edema, Denies lightheadedness, Denies palpitations, Denies dyspnea, Denies dyspnea on exertion and Denies orthopnea Resp Denies cough, Denies excessive phlegm production, Denies dyspnea, Denies dyspnea on exertion, Denies snoring and Denies wheezing GI Denies abdominal pain, Denies hematochezia, Denies change in bowel habits, Denies nausea and Denies vomiting Denies urinary frequency and Denies dysuria Musc Denies arthralgias, Denies muscle weakness, Denies numbness and Denies other (frequent falls) Skin/Breast Denies nail changes and Denies rash Neuro Denies Abnormal speech present, Denies dizziness, Denies frequent falls, Denies loss of vision, Denies memory loss, Denies numbness and Denies weakness Psych Denies depression and Denies memory loss Endo Denies fatigue and Denies palpitations Tawanda/Lymph Reports easy bruising and Reports other (anemia) Aller/Immun Denies wheezing Physical Exam Vital Signs: Last Vital Signs Pulse 91 12/12/23 12:31 BP 120/74 12/12/23 12:31 BMI result Body Mass Index 25.4 Const General: cooperative, comfortable, no acute distress, alert and awake Nutritional Appearance: average body habitus Orientation/consciousness: patient oriented x3 Limitations: physical limitations HEENT Head: Yes normocephalic and Yes atraumatic Neck Neck: Yes trachea midline, Yes supple and Yes no JVD Carotids: no bruits Resp Effort & Inspection: normal respiratory effort Auscultation: clear to auscultation bilaterally Cardio Jugular venous distension: no JVD Palpation: normal PMI Rate: regular rate Rhythm: regular rhythm Heart sounds: S1 normal heart sound present, S2 normal heart sound present, no click, no gallops, no murmurs and no rubs GI Auscultation: normal bowel sounds Skin General skin exam: no rashes or lesions noted Neuro General: patient oriented x3 and no focal motor deficits Speech: No Abnormal speech present Extrem General: Yes no clubbing, cyanosis or edema Office Procedures EKG Details: EKG shows NSR with normal EKG 43022-[id number], Complete Assessment & Plan Assessment & Plan (1) Atypical chest pain: Code(s): R07.89 - Other chest pain Category: Medical Plan: Atypical chest pain in the elderly woman with prior history of peripheral vascular disease currently control with limited activity level with multiple risk factors including hypertension, hyperlipidemia, prior smoking as well as prediabetes. Myocardial ischemia needs to be ruled out. Will suggest a vasodilating myocardial perfusion imaging as she can not exercise a treadmill. Further treatment based on the findings. If this is within normal limits discussed with her that this would carry good prognosis for the future. Continue aggressive vascular risk factor modification. Blood pressure is well optimized. Target goal LDL less than 70 mg/dL being pursue through office. Will follow up in the clinic if need be. Thank you for allowing me to partake in the care Coding Level of Care Code New Pt Level 4 (83331) Diagnoses Atypical chest pain R07.89 CPT Codes EKG - CPT: 33837-[id number], Complete ([id number])
== END 2023-12-12 12:53 | disposition home or self-care (01) ==
PROVIDERS: PCP Internal Medicine; Visit Provider Internal Medicine Cardiovascular Disease
DX: R07.89 Other chest pain (principal)
CPT/HCPCS: 93010; 99214

== ENCOUNTER → 2023-12-12 12:13 | Outpatient (BNVA) | payer MEDICARE, SELFPAY | PROVIDERS: PCP Internal Medicine; Visit Provider Internal Medicine Cardiovascular Disease | DX: R07.89 Other chest pain (principal); I73.9 Peripheral vascular disease, unspecified | CPT/HCPCS: 93005; 99212 ==

== ENCOUNTER 2023-12-25 07:43 | Outpatient (AMB) | payer MEDICARE, SELFPAY ==
--- NOTE | 2023-12-25 07:54 | MHC.OFFVIS ---
Vital Signs 12/25/23 08:16 Height 5 ft 4 in Weight 148 lb BMI 25.4 BP 86/59 L Blood Pressure Location Lt brachial Position Sitting Pulse 84 Intake Visit Reasons: Incontinence of Feces Intake Note: Patient new consult for Incontinence of feces Patient cc: diarrhea, GERD with burning sensation, and some difficulty swallowing. 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 Patient has been experiencing increased frequency of loose stools. Patient reports that she has fecal incontinence sometimes not aware that she has gone to the bathroom. Patient denies history of constipation. However she reports that she does not feel like she empties her bowels when she has a bowel movement. Symptoms of acid reflux, recently patient was placed on pantoprazole and states that she is doing better. Occasional symptoms of acid reflux depending on what she eats. Occasional symptoms at night time. Patient denies any nausea or vomiting. Denies any melena, hematochezia, unintentional weight loss or ribbon like stools. Patient reports last colonoscopy 4 years ago, no polyps was told to repeat colonoscopy in 10 years. Patient had colonoscopy done with Dr. Reyes. [facility] Family History Brother Heart attack Sister Heart attack Father Diabetes Mother Mental health disorder Other Substance use disorder Social History Housing: House Patient Tobacco Use Status: Former Tobacco user e-Cigarette/Vaping Use: Never Used service: Yes Current occupational status: retired Cognitive needs: No Hearing needs: No Vision needs: Yes Review of Systems Const Denies weight gain and Denies weight loss ENT Reports no additional complaints, Denies dysphagia and Denies odynophagia Card Reports no additional complaints Resp Reports no additional complaints GI Reports abdominal pain (lower), Denies belching, Denies melena, Reports bloating, Denies change in bowel habits, Denies dysphagia, Denies excessive flatus, Denies dyspepsia, Denies heartburn, Denies diarrhea, Reports loose stools, Denies nausea, Denies odynophagia and Denies vomiting Reports no additional complaints Musc Reports no additional complaints Neuro Reports no additional complaints Psych Reports no additional complaints Endo Reports no additional complaints Physical Exam Const General: healthy appearing, no acute distress and well developed Nutritional Appearance: well nourished Orientation/consciousness: patient oriented x3 Resp Effort & Inspection: normal respiratory effort, able to speak in complete sentences, no tracheal deviation and symmetric chest movement Auscultation: clear to auscultation bilaterally Cardio Rate: regular rate GI Inspection: Yes normal to inspection and No distended Palpation (GI): Soft to palpation, not firm, nontender and No hepatosplenomegaly present Auscultation: normal bowel sounds General: Yes no CVA tenderness Back/Spine/Pelvis Back: no CVA tenderness Skin General skin exam: elasticity normal, turgor normal and dry skin Neuro General: patient oriented x3 Psych Appearance: grossly normal Mental Status: mental status grossly normal Assessment & Plan Assessment & Plan (1) Stool incontinence: Code(s): R15.9 - Full incontinence of feces Category: Medical Qualifiers: Fecal incontinence type: fecal smearing Qualified Code(s): R15.1 - Fecal smearing (2) Acid reflux: Code(s): K21.9 - Gastro-esophageal reflux disease without esophagitis Category: Medical Qualifiers: Esophagitis presence: with esophagitis Esophagitis bleeding: without hemorrhage Qualified Code(s): K21.00 - Gastro-esophageal reflux disease with esophagitis, without bleeding (3) Postprandial abdominal bloating: Code(s): R14.0 - Abdominal distension (gaseous) Plan Continue pantoprazole daily. Avoid dietary triggers and late night snacking. Staying upright for minimum 3 hours after meals discussed with patient. Patient can take on as-needed basis Pepcid. She will take 1-2 Citrucel tablets to help her bulk stools after breakfast. Patient will take senna at night time to help her empty her bowels completely. Patient will also follow FODMAP diet. List of food recommended as well as list of food to avoid given to patient. Patient will follow-up in the office in 3 months, sooner on as needed basis. She is agreeable to this plan and verbalizes understanding of instructions. She was given the opportunity to ask questions and all questions answered. Thank you for allowing participate care Orders: Orders Vitamin B12 and Folate Today R19.7 - Diarrhea, unspecified Vitamin D 25-OH (D2 and D3) Today E55.9 - Vitamin D deficiency, unspecified Medications: New methylcellulose (laxative) (Citrucel) take it with full glass of water 500 mg PO DAILY 90 tabs 2RF K59.00 - Constipation, unspecified sennosides (Natural Senna Laxative) 17.2 mg (2 x 8.6 mg) PO BEDTIME 60 tabs 3RF constipation K59.00 - Constipation, unspecified famotidine (Pepcid) 20 mg PO BEDTIME 30 tabs 3RF K21.9 - Gastro-esophageal reflux disease without esophagitis Coding Level of Care Code New Pt Level 3 (18047) Diagnoses Fecal smearing R15.1 Fecal incontinence type: fecal smearing Gastroesophageal reflux disease with esophagitis without hemorrhage K21.00 Esophagitis presence: with esophagitis Esophagitis bleeding: without hemorrhage Postprandial abdominal bloating R14.0 Time Spent (min) 40 Comment 30 minutes spent with patient and additional 10 minutes spent reviewing her records
[2023-12-25 08:16] VITALS: BP 86/59; PULSE 84; BMI 25.4
== END 2023-12-25 10:13 | disposition home or self-care (01) ==
PROVIDERS: PCP Internal Medicine; Visit Provider Nurse Practitioner Family
DX: R15.1 Fecal smearing (principal); K21.00 Gastro-esophageal reflux disease with esophagitis, without bleeding; R14.0 Abdominal distension (gaseous)
CPT/HCPCS: 99203

== ENCOUNTER → 2023-12-25 07:43 | Outpatient (BNVA) | payer MEDICARE, SELFPAY | PROVIDERS: PCP Internal Medicine; Visit Provider Nurse Practitioner Family | DX: R15.1 Fecal smearing (principal); R19.7 Diarrhea, unspecified; K21.00 Gastro-esophageal reflux disease with esophagitis, without bleeding; R14.0 Abdominal distension (gaseous); E55.9 Vitamin D deficiency, unspecified; K59.00 Constipation, unspecified | CPT/HCPCS: 99202 ==

== ENCOUNTER 2024-01-30 07:38 | Outpatient (REF) | payer MEDICARE, SELFPAY ==
[2024-01-30 11:14] LABS: Folate 5.6 ng/mL (> or = 4.0); Vitamin B12 302 pg/mL (200-900)
[2024-02-03 16:29] LABS: Vitamin D 25-OH, D2 <4 ng/mL; Vitamin D 25-OH, D3 13 ng/mL; Vitamin D 25-OH, Total 13 ng/mL (30-100)
== END 2024-01-30 07:39 | disposition home or self-care (01) ==
LOC: HO.HMGCLDS 07:38
PROVIDERS: PCP Internal Medicine; Referring Provider Nurse Practitioner Family; Visit Provider Internal Medicine
DX: R19.7 Diarrhea, unspecified (principal); E55.9 Vitamin D deficiency, unspecified
CPT/HCPCS: 36415; 82306; 82607; 82746

== ENCOUNTER 2024-01-31 08:52 | Outpatient (AMB) | payer MEDICARE, SELFPAY ==
--- NOTE | 2024-01-31 08:53 | AM.OFFVISMDC ---
Intake Vital Signs 01/31/24 08:57 Height 5 ft 4 in Weight 148 lb BMI 25.4 BP 100/66 Blood Pressure Location Lt brachial Position Sitting Pulse 73 Pulse Source Pulse Oximeter Pulse Oximetry (%) 97 Oxygen Delivery Method Room Air Intake Visit Reasons: AWV G0438 Allergies No Known Allergies Allergy (Verified 12/25/23 07:53) Medication List - Last Reconciled 01/31/24 by Demetri Thomas MD amlodipine 5 mg PO DAILY buspirone 15 mg (1.5 x 10 mg) PO TID cilostazol 100 mg PO BID 90 days citalopram 50 mg PO DAILY ezetimibe-simvastatin 10-10 mg 1 tab PO DAILY famotidine (Pepcid) 20 mg PO BEDTIME lorazepam 1 mg PO BID PRN methylcellulose (laxative) (Citrucel) 500 mg PO DAILY pantoprazole 20 mg PO DAILY sennosides (Natural Senna Laxative) 17.2 mg (2 x 8.6 mg) PO BEDTIME Do you need a note to return to daycare/school/sports/work: No HPI AWV G0438 HPI Details Patient is 68-year-old female came in today for her regular follow-up appointment and Medicare wellness visit Patient is now seeing Gastroenterology [facility] and is taking PPI and H2 blockers which is helping She also saw Dr. Meredith cardiology in November of this year for atypical chest pain Nuclear imaging was supposed to be done but I do not see the order Message sent to cardiology office She is doing well taking all her medications She is now seeing a therapist and a psych med prescriber or her psychiatric medications are through them Blood pressure is stable Medications from PCP office are amlodipine cilostazol for leg cramping and simvastatin for lipid control Patient will return in May for follow-up appointment She will have healthcare proxy filled as her son is visiting her soon HPI Comments History of Present Illness Details AWV Medical/social history reviewed Past medical history reviewed Hundred of care / care team list updated Surgical/ hospitalization history reviewed Current medications including OTC and supplements reviewed Family history reviewed Tobacco controlled form updated Alcohol use form updated Illicit drug use in social history reviewed Current diagnosis of depression ?screening updated Appropriate PHQ 2/PHQ-9 completed . Vital signs reviewed Alcohol tobacco drug use reviewed and discussed . MMSE completed . ? Fall risk: ?Assessed Fall history: ?None Have you had any falls with injury in the past year?? No Have you had 2 or more falls in the past year?? No Fall risk assessment completed Home safety discussed with the patient Functional ability assessed and discussed and documented Activities of daily living reviewed and appropriate actions taken . HRA filled out by the patient and reviewed by provider and scanned . Appropriate written screening schedule established . Any health advise needed provided . Advance care planning discussed with the patient , necessary paperwork filled Examination IPPE/AWE: Balance intact Romberg intact Tandem walk failed walk-in turn intact rise from sit to stand intact . ?Hearing ?whisper test pass . Medication list reviewed, patient is stable on medications All other providers patient is seeing discussed and noted . FORMERLY [facility] Family History Brother Heart attack Sister Heart attack Father Diabetes Mother Mental health disorder Other Substance use disorder Social History Housing: House Patient Tobacco Use Status: Former Tobacco user e-Cigarette/Vaping Use: Never Used service: Yes Current occupational status: retired Cognitive needs: No Hearing needs: No Vision needs: Yes Questionnaire Medicare Wellness Checkup What [age] 65-70 What gender do you identify with?: female During the past 4 weeks, how much have you been bothered by emotional problems such as feeling anxious, depressed, irritable, sad or downhearted, and blue?: moderately During the past 4 weeks, has your physical & emotional health limited your social activities with family, friends, neighbors, or groups?: slightly During the past 4 weeks, how much bodily pain have you generally had?: no pain During the past 4 weeks, was someone available to help you if you needed & wanted help?: yes, as much as I wanted During the past 4 weeks, what was the hardest physical activity you could do for at least 2 minutes?: heavy Can you get to places out of walking distance without help? (For eg., can you travel alone on buses, taxis or drive your car?): Yes Can you go shopping for groceries or clothes without someone's help?: Yes Can you prepare your own meals?: Yes Can you do your housework without help?: Yes Because of any health problems, do you need the help of another person with your personal care needs such as eating, bathing, dressing or getting around the house?: No Can you handle your own money without help?: Yes During the past 4 weeks, how would you rate your health in general?: good During the past 4 weeks how have things been going for you?: good & bad parts about equal Are you having difficulties driving your car?: no Do you always fasten your seat belt when you are in a car?: yes, usually During past 4 weeks, have you been bothered by the following: never: Falling or dizzy when standing up, Sexual problems?, Trouble eating well?, Teeth or denture problems?, Problems using the telephone? and Tiredness or fatigue? Have you fallen 2 or more times in the past year?: No Are you afraid of falling?: Yes Are you a smoker?: no During the past 4 weeks, how many drinks of wine, beer, or other alcoholic beverages did you have?: 1 drink or less per week Do you exercise for about 20 minutes 3 or more times a week?: yes, some of the time Have you been given information to help with the following?: yes: Keeping track of your medications? and no: Hazards in your house that might hurt you? How often do you have trouble taking medicines the way you have been told to take them?: I always take medicine as prescribed How confident are you that you can control & manage most of your health problems?: very confident What is your race?: White Mini Mental State Exam (MMSE) Orientation What is the (year) (season) (date) (day) (month)?: year, season, date, day and month Where are we (state) (county) (town or city) (hospital) (floor)?: state, county, town or city, hospital/clinic and floor Score Score: 10 Activity of Daily Living Bathing - sponge bath, tub bath or shower: receives no assistance (gets in/out by self, if usual bathing means Dressing - getting clothes from closets & drawers, including inner/outer garments & fasteners.: gets clothes & gets completely dressed without help Toileting - going to the 'toilet room' for urine/bowel elimination & cleaning self/arranging clothes: goes to toilet room, cleans self, arranges clothes without help Transfer: moves in & out of bed and chair without help (may use support object) Continence: controls urination/bowel movements completely by self Feeding: feeds self without help Total Score: 0 Information obtained from: patient Using telephone: independent Traveling: independent Shopping: independent Preparing meals: independent Housework: independent Taking medicine: independent Managing money: independent PHQ-9 Over the last 2 weeks, how often have you been bothered by any of the following problems? 1. Little interest or pleasure in doing things: more than half the days 2. Feeling down, depressed, or hopeless: several days 3. Trouble falling or staying asleep, or sleeping too much: several days 4. Feeling tired or having little energy: several days 5. Poor appetite or overeating: not at all 6. Feeling bad about yourself - or that you are a failure or have let yourself or your family down: not at all 7. Trouble concentrating on things, such as reading the newspaper or watching television: not at all 8. Moving or speaking so slowly that other people could have noticed. Or the opposite - being so fidgety or restless that you have been moving around a lot more than usual: not at all 9. Thoughts that you would be better off or of hurting yourself in some way: not at all Total score: 5 Depression Screening Interpretation: Negative Depression Screening Done: Yes 29428 - PHQ-9 Billing: Yes Source: Developed by Drs. Xiang Arguelles, Karol Powell, Martir Jones and colleagues, with an educational elsa from [employer]. Review of Systems Const Denies chills and Denies fever(s) ENT Denies epistaxis and Denies nasal discharge Card Denies chest pain Resp Denies chest congestion, Denies cough and Denies hemoptysis GI Denies diarrhea and Denies nausea Skin/Breast Denies rash Neuro Reports no additional complaints Psych Reports no additional complaints Endo Reports no additional complaints Physical Exam Vital Signs: Last Vital Signs Pulse 73 01/31/24 08:57 BP 100/66 01/31/24 08:57 Pulse Ox 97 01/31/24 08:57 Oxygen Delivery Method Room Air 01/31/24 08:57 BMI result Body Mass Index 25.4 Const General: cooperative, comfortable and no acute distress Orientation/consciousness: patient oriented x3 HEENT Head: Yes normocephalic Eyes General: appearance normal, both eyes and all related structures Neck Other: Supple Neck: Yes supple Resp Effort & Inspection: normal respiratory effort, no cough and no stridor Cardio Rhythm: regular rhythm Heart sounds: S1 normal heart sound present and S2 normal heart sound present Skin General skin exam: turgor normal Neuro Other: Motor sensory intact General: patient oriented x3, tone normal and moves all extremities Extrem Other: No lower extremity swelling. Right lower extremity: no edema Left lower extremity: no edema Psych Other: Normal effect, speech clear Assessment & Plan Assessment & Plan (1) Medicare annual wellness visit, subsequent: Code(s): Z00.00 - Encounter for general adult medical examination without abnormal findings (2) Atypical chest pain: Code(s): R07.89 - Other chest pain (3) Pre-diabetes: Code(s): R73.03 - Prediabetes (4) Benzodiazepine dependence: Code(s): F13.20 - Sedative, hypnotic or anxiolytic dependence, uncomplicated (5) Lipid disorder: Code(s): E78.9 - Disorder of lipoprotein metabolism, unspecified (6) Peripheral vascular disease: Code(s): I73.9 - Peripheral vascular disease, unspecified (7) Depression, major, severe recurrence: Code(s): F33.2 - Major depressive disorder, recurrent severe without psychotic features Qualifiers: Psychotic features: without psychotic features Qualified Code(s): F33.2 - Major depressive disorder, recurrent severe without psychotic features (8) Severe anxiety: Code(s): F41.9 - Anxiety disorder, unspecified (9) Hypertension, essential: Code(s): I10 - Essential (primary) hypertension Plan Patient is 68-year-old female came in today for her regular follow-up appointment and Medicare wellness visit Patient is now seeing Gastroenterology [facility] and is taking PPI and H2 blockers which is helping She also saw Dr. Meredith cardiology in November of this year for atypical chest pain Nuclear imaging was supposed to be done but I do not see the order Message sent to cardiology office She is doing well taking all her medications She is now seeing a therapist and a psych med prescriber or her psychiatric medications are through them Blood pressure is stable Medications from PCP office are amlodipine cilostazol for leg cramping and simvastatin for lipid control Patient will return in May for follow-up appointment She will have healthcare proxy filled as her son is visiting her soon Medications: Changed From citalopram 40 mg PO DAILY 90 tabs 0RF To citalopram 50 mg PO DAILY Quality Reporting (2019) Depression/Bipolar (159/160/161/177) PHQ-9: Total score: 5 Coding Level of Care Code Medicare Subsequent (G0439) Est Pt Level 4 (79312) Diagnoses Medicare annual wellness visit, subsequent Z00.00 Atypical chest pain R07.89 Pre-diabetes R73.03 Benzodiazepine dependence F13.20 Lipid disorder E78.9 Peripheral vascular disease I73.9 Severe episode of recurrent major depressive disorder, without psychotic features F33.2 Psychotic features: without psychotic features Severe anxiety F41.9 Hypertension, essential I10 CPT Codes Advance Care Planning - Advance Care Planning discussion: On file, no changes ([id number]) Advance Care Planning Advance Care Planning discussion: On file, no changes Forms completed: DEANGELO
[2024-01-31 08:57] VITALS: BP 100/66; PULSE 73; O2SAT 97; BMI 25.4
== END 2024-01-31 09:35 | disposition home or self-care (01) ==
PROVIDERS: PCP Internal Medicine; Visit Provider Internal Medicine
DX: Z00.00 Encounter for general adult medical examination without abnormal findings (principal); F13.20 Sedative, hypnotic or anxiolytic dependence, uncomplicated; I73.9 Peripheral vascular disease, unspecified; F33.2 Major depressive disorder, recurrent severe without psychotic features; R07.89 Other chest pain; R73.03 Prediabetes; E78.9 Disorder of lipoprotein metabolism, unspecified; F41.9 Anxiety disorder, unspecified; I10 Essential (primary) hypertension
CPT/HCPCS: 1123F; 99214; G0439

== ENCOUNTER 2024-03-25 08:26 | Outpatient (AMB) | payer MEDICARE, SELFPAY ==
--- NOTE | 2024-03-25 08:31 | MHC.OFFVIS ---
Vital Signs 03/25/24 08:33 Height 5 ft 4 in Weight 149 lb 7.574 oz BMI 25.7 BP 138/82 Blood Pressure Location Rt brachial Position Sitting Pulse 86 Pulse Source Pulse Oximeter Pulse Oximetry (%) 96 Oxygen Delivery Method Room Air Intake Visit Reasons: 3 month follow up Intake Note: PRESCRIPTIONS LAST GENERATED sennosides 8.6 mg tablet?(Natural Senna Laxative)?17.2 mg (2 x 8.6 mg) PO BEDTIME 60 tabs 3RF Jason,Lauren D 12/25/23 08:34 (Transmitted) famotidine 20 mg tablet?(Pepcid)?20 mg PO BEDTIME 30 tabs 3RF Jason,Lauren D 12/25/23 08:34 (Transmitted) methylcellulose (laxative) 500 mg tablet?(Citrucel)?500 mg PO DAILY 90 tabs 2RF Jason,Aluren D 12/25/23 08:34 (Transmitted) Relevant Flags or Indicators ? 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 Yonatan BasilioDea presents in office today for a scheduled 3 mos FUV. CC; No recent diagnostics placed. Labs and meds ordered and fulfilled. Relevant GI Sx as reported per pt? None ? Hx of any recent surgeries? None Allergies No Known Allergies Allergy (Verified 03/25/24 08:31) HPI HPI 3 month follow up: Details: LAST VISIT Stool incontinence Acid reflux Postprandial abdominal bloating Plan Continue pantoprazole daily. Avoid dietary triggers and late night snacking. Staying upright for minimum 3 hours after meals discussed with patient. Patient can take on as-needed basis Pepcid. She will take 1-2 Citrucel tablets to help her bulk stools after breakfast. Patient will take senna at night time to help her empty her bowels completely. Patient will also follow FODMAP diet. List of food recommended as well as list of food to avoid given to patient. Patient will follow-up in the office in 3 months, sooner on as needed basis. She is agreeable to this plan and verbalizes understanding of instructions. She was given the opportunity to ask questions and all questions answered. ? Thank you for allowing participate care Orders Orders Vitamin B12 and Folate Today R19.7 Vitamin D 25-OH (D2 and D3) Today E55.9 Medications New methylcellulose (laxative) (Citrucel) take it with full glass of water 500 mg PO DAILY 90 tabs 2RF K59.00 sennosides (Natural Senna Laxative) 17.2 mg (2 x 8.6 mg) PO BEDTIME 60 tabs 3RF constipation K59.00 famotidine (Pepcid) 20 mg PO BEDTIME 30 tabs 3RF K21.9 TODAY'S VISIT Patient is here today for follow-up. Patient reports that she is doing much better since last visit. Patient is taking fiber daily and Senokot at night time and is moving her bowels without any issues. No postprandial diarrhea. Patient is trying to eliminate food that could cause that. She feels like lactose is 1 of whom. Patient denies any postprandial abdominal pain or discomfort. Patient denies any postprandial bloating. Symptoms of acid reflux are suppressed with pantoprazole. She is using famotidine as needed at bedtime. Patient denies dyspepsia, dysphagia or odynophagia. Denies melena, hematochezia, unintentional weight loss or ribbon like stools. Patient had colonoscopy 4-5 years ago and was told to repeat colo screen in 10 years. Patient denies any other GI concerning symptoms. [facility] Family History Brother Heart attack Sister Heart attack Father Diabetes Mother Mental health disorder Other Substance use disorder Social History Housing: House Patient Tobacco Use Status: Former Tobacco user e-Cigarette/Vaping Use: Never Used service: Yes Current occupational status: retired Cognitive needs: No Hearing needs: No Vision needs: Yes Review of Systems Const Denies weight gain and Denies weight loss ENT Reports no additional complaints, Denies dysphagia and Denies odynophagia Card Reports no additional complaints Resp Reports no additional complaints GI Denies abdominal pain, Denies belching, Denies melena, Denies bloating, Denies change in bowel habits, Denies dysphagia, Denies excessive flatus, Denies dyspepsia, Denies heartburn, Denies diarrhea, Denies loose stools, Denies nausea, Denies odynophagia and Denies vomiting Reports no additional complaints Musc Reports no additional complaints Neuro Reports no additional complaints Psych Reports no additional complaints Endo Reports no additional complaints Physical Exam Const General: healthy appearing, no acute distress and well developed Nutritional Appearance: well nourished Orientation/consciousness: patient oriented x3 Resp Effort & Inspection: normal respiratory effort, able to speak in complete sentences, no tracheal deviation and symmetric chest movement Auscultation: clear to auscultation bilaterally Cardio Rate: regular rate GI Inspection: Yes normal to inspection and No distended Palpation (GI): Soft to palpation, not firm, nontender and No hepatosplenomegaly present Auscultation: normal bowel sounds General: Yes no CVA tenderness Back/Spine/Pelvis Back: no CVA tenderness Skin General skin exam: elasticity normal, turgor normal and dry skin Neuro General: patient oriented x3 Psych Appearance: grossly normal Mental Status: mental status grossly normal Assessment & Plan Assessment & Plan (1) Stool incontinence: Code(s): R15.9 - Full incontinence of feces Category: Medical Qualifiers: Fecal incontinence type: fecal smearing Qualified Code(s): R15.1 - Fecal smearing (2) Acid reflux: Code(s): K21.9 - Gastro-esophageal reflux disease without esophagitis Category: Medical Qualifiers: Esophagitis presence: with esophagitis Esophagitis bleeding: without hemorrhage Qualified Code(s): K21.00 - Gastro-esophageal reflux disease with esophagitis, without bleeding (3) Postprandial abdominal bloating: Code(s): R14.0 - Abdominal distension (gaseous) Plan Continue current regimen with fiber and senna. Increase fluid intake and activity to promote better bowel motility. Avoid lactose. Avoid dietary triggers. Continue pantoprazole. Avoid late night snacking. Staying upright for minimum 3 hours after meals discussed with patient. Patient will follow-up in 1 year, if she continues to have postprandial loose stools she will go for colonoscopy sooner. Patient is agreeable to this plan and verbalizes understanding of instructions. She was given the opportunity to ask questions and all questions answered. Thank you for allowing me to participate in her care Coding Level of Care Code Est Pt Level 3 (25419) Diagnoses Fecal smearing R15.1 Fecal incontinence type: fecal smearing Gastroesophageal reflux disease with esophagitis without hemorrhage K21.00 Esophagitis presence: with esophagitis Esophagitis bleeding: without hemorrhage Postprandial abdominal bloating R14.0 Time Spent (min) 30 Comment 20 minutes spent with patient and additional 10 minutes spent reviewing her records
[2024-03-25 08:33] VITALS: BP 138/82; PULSE 86; O2SAT 96; BMI 25.7
== END 2024-03-25 08:45 | disposition home or self-care (01) ==
LOC: HO.HGI 08:27
PROVIDERS: PCP Internal Medicine; Visit Provider Nurse Practitioner Family
DX: R15.1 Fecal smearing (principal); K21.00 Gastro-esophageal reflux disease with esophagitis, without bleeding; R14.0 Abdominal distension (gaseous)
CPT/HCPCS: 99213

== ENCOUNTER → 2024-03-25 08:26 | Outpatient (BNVA) | payer MEDICARE, SELFPAY | PROVIDERS: PCP Internal Medicine; Visit Provider Nurse Practitioner Family | DX: R15.1 Fecal smearing (principal); K21.00 Gastro-esophageal reflux disease with esophagitis, without bleeding; R14.0 Abdominal distension (gaseous) | CPT/HCPCS: 99212 ==

== ENCOUNTER 2024-05-29 07:58 | Outpatient (REF) | payer MEDICARE, SELFPAY ==
[2024-05-29 09:54] LABS: MANUAL DIFF FLAG NO
[2024-05-29 10:03] LABS: Appearance Urine Clear; Color Urine Yellow; Glucose Urine UA Negative (Negative); Leukocyte Esterase Urine Small (1+) (Negative); Nitrite Urine Negative (Negative); UMIC TRIGGER UACC YES; Urine Blood Negative (Negative); Urine Ketones Negative (Negative); Urine Protein Negative (Neg-Trace)
[2024-05-29 10:04] LABS: Basophils Absolute Auto 0.1 X10*3/uL (0.0-0.2); Basophils Percent Auto 0.6 % (0-2); Eosinophils Absolute Auto 0.1 X10*3/uL (0.0-0.4); Eosinophils Percent Auto 0.8 % (0-4); Hematocrit 39.9 % (37.0-47.0); Hemoglobin 13.5 g/dl (12.0-16.0); Imm Gran Abs Auto 0.03 X10*3/uL (0.00-0.03); Imm Gran Pct Auto 0.4 % (0.0-0.4); Lymphocytes Absolute Auto 2.6 X10*3/uL (1.2-4.9); Lymphocytes Percent Auto 33.5 % (20-40); Mean Corpuscular HGB Conc 33.8 g/dl (31.0-35.0); Mean Corpuscular Hemoglobin 32.8 pg (27.0-33.0); Mean Corpuscular Volume 97.1 fL (80.0-98.0); Mean Platelet Volume 11.5 fL (9.4-12.3); Monocytes Absolute Auto 0.6 X10*3/uL (0.1-1.2); Monocytes Percent Auto 8.3 % (2-11); Neutrophils Absolute Auto 4.4 x10*3/uL (2.0-8.3); Neutrophils Percent Auto 56.4 % (45-73); Platelet Count 272 X10*3/uL (160-400); Red Blood Count 4.11 X10*6/uL (4.20-5.50); Red Cell Distribution Width 12.4 % (11.0-16.0); White Blood Count 7.7 X10*3/uL (4.8-10.8)
[2024-05-29 10:08] LABS: Bacteria Urine None Seen (None Seen); Hyaline Casts Urine 0-2 /LPF (0-2); RBC Urine 0-2 /HPF (0-2); Squamous Epithelial Cell Urine 0-2 /HPF (0-2); UACC Culture Trigger YES; WBC Urine >50 /HPF (0-5)
[2024-05-29 10:24] LABS: Alanine Aminotransferase 16 U/L (0-31); Albumin Level 4.3 g/dL (3.5-5.0); Alkaline Phosphatase 76 U/L (39-117); Anion Gap 10 (12-20); Aspartate Amino Transferase 14 U/L (5-31); Bilirubin Total 0.3 mg/dL (0.0-1.0); Blood Urea Nitrogen 7 mg/dL (9-16); Calcium 9.7 mg/dL (8.4-10.2); Carbon Dioxide 26 mmol/L (22-29); Chloride 110 mmol/L (96-108); Cholesterol 169 mg/dL (<200); Estimated Glomerular Filt Rate > 60; Glucose Fasting 105 mg/dL (60-99); HDL Cholesterol 54 mg/dL (>40); LDL Cholesterol Calculated 87 mg/dL (<100); Potassium 4.1 mmol/L (3.3-5.1); Sodium 142 mmol/L (135-145); Total Protein 7.1 g/dL (6.5-8.0); Triglycerides 144 mg/dL (<150)
[2024-05-29 10:40] LABS: TSH reflex Free T4 0.89 uIU/mL (0.32-4.0)
== END 2024-05-29 07:59 | disposition home or self-care (01) ==
LOC: HO.HMGCLDS 07:58
PROVIDERS: PCP Internal Medicine; Visit Provider Internal Medicine
DX: I10 Essential (primary) hypertension (principal); R30.0 Dysuria; E78.9 Disorder of lipoprotein metabolism, unspecified; R73.03 Prediabetes; F13.20 Sedative, hypnotic or anxiolytic dependence, uncomplicated; I73.9 Peripheral vascular disease, unspecified; F33.2 Major depressive disorder, recurrent severe without psychotic features; F41.9 Anxiety disorder, unspecified; E55.9 Vitamin D deficiency, unspecified; Z79.899 Other long term (current) drug therapy
CPT/HCPCS: 36415; 80053; 80061; 81001; 81003; 84443; 85025; 87086; 87088; 87186; 96127; 99212

== ENCOUNTER 2024-05-29 07:58 | Outpatient (AMB) | payer MEDICARE, SELFPAY ==
--- OUTSIDE RECORDS SUMMARY | 2024-05-29 08:01 | XMS_ITS | Data Portability ---
Author Organization [facility], [address] Address [address] [place] [address] Care Team Providers Care Vp Production Name Role Phone EDUARDO LAZARO Primary Care Provider [phone] Assessment No assessment recorded. Plan of Treatment Reminders Order Date Submit Date Provider Last Modified By Organization Details Last Modified Time Details Appointments None recorded. Lab urinalysis, dipstick 2022 023 [place] [address], [address], 15:06:37 Referral None recorded. Procedures None recorded. Surgeries None recorded. Imaging None recorded. Medication Orders cetirizine 10 mg tablet 2022 023 [facility], [address] [place], [address], 15:06:39 prednisone 20 mg tablet 2022 023 [email or web address] [facility], [address] [place], [address], 3 19:09:08 Patient TargetsNo targets recorded. Patient Instructions Encounter Date Encounter Id Patient Instructions Last Modified By Organization Details Last Modified Time 09/10/2022 [id number] dizziness: care instructions [email or web address] Not available 09/10/2022 15:06:37 Rest. Drink plenty of fluids. See printed instructions: dizziness [email or web address] Not available 09/14/2022 19:25:26 Reason for Referral None Reported. Results Created Date Observation Date Name Description Value Unit Range Abnormal Flag Note LastModifiedBy Organization Detail LastModifiedTime 09/11/19 23 09/10/2022 urina lysis , dipst ick Unknown Analyte Normal = light yellow Not Available [address], [place], [address], 09/10/2022 13:41:06 09/11/19 23 09/10/2022 urina lysis , dipst ick Unknown Analyte Yellow Not Available [address] [facility], [place], [address], 09/10/2022 13:41:06 09/11/19 23 09/10/2022 urina lysis , dipst ick Unknown Analyte Normal = clear Not Available [address]sarmad callahan [address], [place], [address], 09/10/2022 13:41:06 09/11/19 23 09/10/2022 urina lysis , dipst ick Unknown Analyte Clear Not Available 2099 [facility], [place], [address], 09/10/2022 13:41:06 09/11/19 23 09/10/2022 urina lysis , dipst ick Unknown Analyte Normal = negati ve Not Available sarmad callahan [address], [place], [address], 09/10/2022 13:41:06 09/11/19 23 09/10/2022 urina lysis , dipst ick Unknown Analyte Negati ve Not Available [address], [place], [address], 09/10/2022 13:41:06 09/11/19 23 09/10/2022 urina lysis , dipst ick Unknown Analyte Normal = Negati ve Not Available sarmad callahan [address], [place], [address], 09/10/2022 13:41:06 09/11/19 23 09/10/2022 urina lysis , dipst ick Unknown Analyte Small Not Available [address] [place] [address]justin [address], [place], [address], 09/10/2022 13:41:06 09/11/19 23 09/10/2022 urina lysis , dipst ick Unknown Analyte Normal = Negati ve Not Available [facility] [address], [place], [address], 09/10/2022 13:41:06 09/11/19 23 09/10/2022 urina lysis , dipst ick Unknown Analyte 40 mg/dL Not Available [facility] [address], [place], [address], 09/10/2022 13:41:06 09/11/19 23 09/10/2022 urina lysis , dipst ick Unknown Analyte Normal = 1.010, 1.015, 1.020 Not Available [facility] [address], [place], [address], 09/10/2022 13:41:06 09/11/19 23 09/10/2022 urina lysis , dipst ick Unknown Analyte 1.030 Not Available [address], [place], [address], 09/10/2022 13:41:06 09/11/19 23 09/10/2022 urina lysis , dipst ick Unknown Analyte Normal = Negati ve Not Available 2099sarmad callahan [address], [place], [address], 09/10/2022 13:41:06 09/11/19 23 09/10/2022 urina lysis , dipst ick Unknown Analyte Negati ve Not Available sarmad callahan [address], [place], [address], 09/10/2022 13:41:06 09/11/19 23 09/10/2022 urina lysis , dipst ick Unknown Analyte Normal = 6.5, 7.0, 7.5, 8.0 Not Available sarmad callahan [address], [place], [address], 09/10/2022 13:41:06 09/11/19 23 09/10/2022 urina lysis , dipst ick Unknown Analyte 6.0 Not Available [address], [place], [address], 09/10/2022 13:41:06 09/11/19 23 09/10/2022 urina lysis , dipst ick Unknown Analyte Normal = Negati ve Not Available [facility] [address], [place], [address], 09/10/2022 13:41:06 09/11/19 23 09/10/2022 urina lysis , dipst ick Unknown Analyte Negati ve Not Available sarmad callahan [address], [place], [address], 09/10/2022 13:41:06 09/11/19 23 09/10/2022 urina lysis , dipst ick Unknown Analyte Normal = 0.2, 1.0 Not Available sarmad callahan [address], [place], [address], 09/10/2022 13:41:06 09/11/19 23 09/10/2022 urina lysis , dipst ick Unknown Analyte 0.2 E.U./d L Not Available 2099sarmad callahan [address], [place], [address], 09/10/2022 13:41:06 09/11/19 23 09/10/2022 urina lysis , dipst ick Unknown Analyte Normal = Negati ve Not Available 2099sarmad callahan [address], [place], [address], 09/10/2022 13:41:06 09/11/19 23 09/10/2022 urina lysis , dipst ick Unknown Analyte Negati ve Not Available 2099sarmad callahan [address], [place], [address], 09/10/2022 13:41:06 09/11/19 23 09/10/2022 urina lysis , dipst ick Unknown Analyte Normal = Negati ve Not Available 2099sarmad callahan [address], [place], [address], 09/10/2022 13:41:06 09/11/19 23 09/10/2022 urina lysis , dipst ick Unknown Analyte Negati ve Not Available 2099sarmad callahan [address], [place], [address], 09/10/2022 13:41:06 Result Notes None recorded. Problems Name Problem SNOMED Code Status Onset Date Resolution Date Notes Provider Name and Address Organization Details Recorded Time Hypertensive disorder 96393951 Active 2022 Marisol Ruiz null, [place] - [facility] 13:26:41 Hypercholestero lemia 55558989 Active 2022 Marisol Ruiz null, PA - [facility] 13:26:46 Depressive disorder 89323371 Active 2022 Marisol Ruiz null, PA - [facility] 13:26:53 Anxiety 38871442 Active 2022 Marisol Ruiz null, PA - [facility] 04/22/202 3 13:26:58 Problem Notes None recorded. Medical Equipment None Reported. Allergies No known drug allergies Medications Name Sig Start Date Stop Date Status Note LastModified by Organization Details LastModified Time cetirizine 10 mg tablet Take 1 tablet every day by oral route for 30 days. 023 active Not Available Not Available Not Avai lable prednisone 20 mg tablet Take 4 tablets every day by oral route for 5 days. 023 active Not Available Not Available Not Avai lable ezetimibe 10 mg-simvastati n 10 mg tablet Take 1 tablet every day by oral route. active Not Available Not Available No t Available citalopram active Not Available Not Av ailable Not Available hydroxyzine HCl active Not Available Not Available Not Available amlodipine active Not Available Not Av ailable Not Available buspirone active Not Available Not Fifi ilable Not Available cilostazol active Not Available Not Av ailable Not Available Vitals Date Recorded Body height Body mass index (BMI) Body weight Respiratory rate Body temperature Heart rate Oxygen saturation Oxygen saturation in Arterial blood by Pulse oximetry Systolic blood pressure Diastolic blood pressure Provider Name and Address Organization Details Last Updated DateTime 3 160.02 cm 23.4 kg/m2 92421.1 9 g 18 /min 97.8 [degF] 70 /min 98 % 98 % 135 mm[Hg] 82 mm[Hg] Marisol [facility] 3 13:28:46 Social History Question Answer Notes LastModified by Organizat ion Details LastModified Time Tobacco Smoking Status Never Smoker TELLY Hutchison [facility] 09/10/2022 13:27:14 What Is Your Level Of Alcohol Consumption? None Information not available 09/10/2022 Which Illicit Or Recreational Drugs Have You Used? Marijuana Information not available 09/10/2022 Do You Use Any Illicit Or Recreational Drugs? Yes Information not available 09/10/2022 Have You Recently Traveled Abroad? No Information not available 09/10/2022 Do You Or Have You Ever Used Any Other Forms Of Tobacco Or Nicotine? No Information not available 09/10/2022 Sex: Unknown Functional Status None recorded. Mental Status None recorded. Family History Relationship Description Onset Age of this Age Resolved Age Notes LastModified by Organization Details LastModified Time Father No current problems or disability [email or web address] Not available 09/10 13:27:01 Mother No current problems or disability [email or web address] Not available 09/10 13:27:01 Medical History No medical history recorded. Gynecological HistoryNo gynecological history recorded. Obstetrics History GPAL:G 0 P 0 0 0 0 Immunizations Vaccine Type Date Status Note Provider Nam e and Address Organization Details Recorded Time COVID-19, mRNA, LNP-S, PF, 30 mcg/0.3 mL dose 09/05/2020 completed Marisol Monfemadhue null, PA - [facility] 09/10/2022 13:24:45 COVID-19, mRNA, LNP-S, PF, 30 mcg/0.3 mL dose 09/26/2020 completed Marisol Monfette null, PA - [facility] 09/10/2022 13:24:45 COVID-19, mRNA, LNP-S, PF, 30 mcg/0.3 mL dose 05/09/2021 completed Marisol Monfette null, PA - [facility] 09/10/2022 13:24:45 COVID-19, mRNA, LNP-S, bivalent, PF, 30 mcg/0.3 mL dose 05/11/2022 completed Marisol Monfette null, PA - [facility] 09/10/2022 13:24:45 Past Encounters Encounter ID Performer Location Encounter Start Date Encounter Closed Date Diagnosis/Indication Diagnosis SNOMED-CT Code Diagnosis ICD10 Code Diagnosis Note [id number] [address] [place] [address] 07/22/2021 08:20:27 07/22/2021 10:33:41 [id number] ALLYSON HONG MD [address] [place] [address] 09/10/2022 13:08:13 09/10/2022 15:08:10 Acute labyrinthitis 8733732348 66899 H83.09 Seasonal a llergic rhinitis 360155437 J30.2 Health Concerns Section Related Observation LastModified by Organization Detai ls LastModified Time None Recorded Concern Status LastModified by Organization Details LastModified Time None Recorded Advance Directives Directive None Recorded Payers Encounter Date Sequence Insurance Name Policy Number Policy [place] Covered Member ID [place] Member ID Guarantor Name 07/22/2021 1 [facility] - SENIOR PLAN (MEDICARE REPLACEMENT HMO) Dea Simmons [id number] Dea Simmons 09/10/[address] [facility] - SENIOR PLAN (MEDICARE REPLACEMENT HMO) Dea Simmons [id number] Dea Simmons Notes Date Note Type Note Provider Name and Address Organization Details Recorded Time 09/10/2022 text/html Dizziness UCReported bypatient.Quality:s ymptoms worse during the day; room spinning when she moves her head back to front. no side to side or front to back. Pressure in the sinuses. Severity:she is able to stand and walk. Duration:intermitte nt episodes lasting:; episodes last a few seconds Onset/Timing:actual date of onset: (09/07/2022) Modifying Factors:change in position; rapid movements Associated Symptoms:no blurred vision; no foggy vision; no double vision; no spots in field of vision; no eye pain; no hearing loss; no difficulty understanding speech; no ear discharge; no noise in the ears; no loss of consciousness; no nausea; no vomiting; no weak limbs; no facial numbness; no difficulty with speech;ringing in the ears (tinnitus);ears feel pressured;ears feel full;headache;head pressureNotes:67 yo female presenting with a 3 day hx of dizziness, runny nose, and headache. She is afebrile with N/V/D or rashes. She feels congested in her sinuses. + HX of seasonal allergies over the last couple of years. She hasn't tried any treatment for her symptoms so far. dizziness and headache x3 days ALLYSON HONG MD [address] [place], [address], PA - [facility] 09/14/2022 19:30:43 OBGyn Episode No OBEpisode recorded.
[2024-05-29 08:07] VITALS: BP 110/72; PULSE 75; O2SAT 98; BMI 24.6
--- NOTE | 2024-05-29 08:07 | A.OFFPC_ITS ---
Vital Signs 05/29/24 08:07 Height 5 ft 4 in Weight 143 lb 6 oz BMI 24.6 BP 110/72 Blood Pressure Location Rt brachial Position Sitting Pulse 75 Pulse Source Pulse Oximeter Pulse Oximetry (%) 98 Oxygen Delivery Method Room Air Intake Visit Reasons: 4 month follow up Allergies No Known Allergies Allergy (Verified 05/29/24 08:07) Medication List - Last Reconciled 05/29/24 by Demetri Thomas MD amlodipine 5 mg PO DAILY buspirone 15 mg PO TID cilostazol 100 mg PO BID 90 days citalopram 50 mg PO DAILY citalopram 10 mg PO DAILY ezetimibe-simvastatin 10-10 mg 1 tab PO DAILY famotidine (Pepcid) 20 mg PO BEDTIME lorazepam 1 mg PO BID methylcellulose (laxative) (Citrucel) 500 mg PO DAILY pantoprazole 20 mg PO DAILY sennosides (Natural Senna Laxative) 17.2 mg (2 x 8.6 mg) PO BEDTIME Tobacco use date assessed: 05/29/24 Fall risk assessment: No Falls in past year Last assessed Fall Risk: 05/29/24 Dental Screening Dental Screen Date: 05/29/24 Did you have a dental problem in the last 6 months where you did not have access to dental care?: No HPI 4 month follow up HPI Details History of Present Illness - The patient is a 69-year-old female pr esenting with urinary symptoms. - She reports a recent onset of urinary discomfort characterized by sensation of incomplete voiding and mild dysuria, persisting for several weeks with no increased frequency or hematuria. - Previously diagnosed with Vitamin D de ficiency and is under supplementation. - Essential hypertension under control w ith current management. - On stable regimen for hyperlipidemia, compliant with smoke chaser supervision. - History of depression and anxiety, act ively managed with buspirone, citalopram, and lorazepam prescribed by her psychiatrist. - Cardiology follow-up regarding a nucle ar test was missed due to perceived non- necessity or coverage issues. Problem List - Vitamin D deficiency - Hypertension - Hyperlipidemia - Depression - Anxiety - Possible urinary tract infection Medications - Vitamin D supplement for Vitamin D def iciency - Antihypertensive medication for Hypert ension - Cholesterol-lowering medication for Hy perlipidemia - Citalopram and Lorazepam for Depressio n and Anxiety through Psychiatry - Buspirone (not prescribed by this offi ce) Diagnostic results - Vitamin D levels indicated deficiency [place] [facility] Psychiatrist for management of depression and anxiety Review of Systems - Genitourinary: Reports sensation of in complete bladder emptying and mild dysuria - Sleep: Reports waking frequently durin g sleep, typical total sleep duration of 5-6 hours General: No fever no chills neurological: No headaches no dizziness ear nose throat: No sore throat no hearing difficulty no ear pain cardiovascular: No syncope, no chest pain, no palpitations gastrointestinal: No nausea vomiting or diarrhea endocrine: No polyuria polydipsia no heat intolerance genitourinary: No dysuria skin: No new complaints Physical Exam general: No acute distress HEENT: No acute findings neck: Supple respiratory system: Able to talk in full sentences, no audible wheeze no stridor cardiovascular: S1-S2 gastrointestinal: No pain extremities: No new findings 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 motor 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 intact skin: Normal turgor Patient Instructions - Schedule next appointment in [facility] - Undergo lab tests, including a urine t est, for further evaluation - Follow up with smoke chaser if desired for missed nuclear test discussion - Maintain current medication regimen un less advised otherwise PFSH Family History Brother Heart attack Sister Heart attack Father Diabetes Mother Mental health disorder Other Substance use disorder Social History Housing: House Patient Tobacco Use Status: Former Tobacco user e-Cigarette/Vaping Use: Never Used service: Yes Current occupational status: retired Cognitive needs: No Hearing needs: No Vision needs: Yes Questionnaire PHQ-9 Over the last 2 weeks, how often have you been bothered by any of the following problems? 1. Little interest or pleasure in doing things: several days 2. Feeling down, depressed, or hopeless: several days 3. Trouble falling or staying asleep, or sleeping too much: several days 4. Feeling tired or having little energy: several days 5. Poor appetite or overeating: several days 6. Feeling bad about yourself - or that you are a failure or have let yourself or your family down: several days 7. Trouble concentrating on things, such as reading the newspaper or watching television: several days 8. Moving or speaking so slowly that other people could have noticed. Or the opposite - being so fidgety or restless that you have been moving around a lot more than usual: not at all 9. Thoughts that you would be better off or of hurting yourself in some way: not at all Total score: 7 Depression Screening Interpretation: Negative Depression Screening Done: Yes 12415 - PHQ-9 Billing: Yes Source: Developed by Drs. Xiang Arguelles, Karol Powell, Martir Jones and colleagues, with an educational elsa from [employer]. Thrive Questionnaire Date Thrive assessed: 05/29/24 I am a: Patient What is your living situation today?: I have a steady place to live Within the past 12 months, did the food you bought not last and you didn't have the money to get more?: Never true Within the past 12 months, did you worry whether your food would run out before you got money to buy more?: Never true Do you have trouble paying for medicines?: No Do you have trouble getting transportation to medical appointments?: No Do you have trouble paying your heating and electricity bill?: No Do you have trouble taking care of your child, family member or friend?: No Do you have trouble with day-to-day activities such as bathing, preparing meals, shopping, managing finances, etc.?: No Are you currently unemployed and looking for a job?: No Are you interested in more education?: No Please select the resources that you would like help with: None Currently or been in a relationship where the following occur: No concerns reported THRIVE Score: 0 AUDIT C Alcohol Use Questionnaire (AUDIT-C) 1. How often do you have a drink containing alcohol?: Never 3. How often do you have six or more drinks on one occasion?: Never Total Score: 0 Score Reviewed/Action Taken: Yes ANABEL-7 AMB Questionnaire ANABEL-7 Date ANABEL - 7 assessed: 05/29/24 Feeling nervous, anxious, or on edge: 1 = Several days Not being able to stop or control worryin = Several days Worrying too much about different things: 1 = Several days Trouble relaxin = Several days Being so restless that it is hard to sit still: 1 = Several days Becoming easily annoyed or irritable: 1 = Several days Feeling afraid as if something awful might happen: 1 = Several days Total ANABEL-7 score (0-4 normal; 5-9 mild; 10-14 moderate; 15-21 severe): 7 Source: Developed by Drs. Xiang Arguelles, Karol Powell, Martir Jones and colleagues, with an educational elsa from [employer]. ANABEL-7 Assessment Billing ANABEL-7 Assessment Tool: ANABEL-7 Assessment 44790 Physical exam (Primary Care) Vital Signs: Last Vital Signs Pulse 75 05/29/24 08:07 BP 110/72 05/29/24 08:07 Pulse Ox 98 05/29/24 08:07 Oxygen Delivery Method Room Air 05/29/24 08:07 BMI result Body Mass Index 24.6 Tobacco/Smoking Status: Tobacco use Status Tobacco use date assessed 05/29/24 05/29/24 08:09 Patient Tobacco Use Status Former Tobacco user 05/29/24 08:09 e-Cigarette/Vaping Use Never Used 05/29/24 08:09 PHQ-9: PHQ-9 Score PHQ-9: Total score 7 05/29/24 08:09 Depression Screening Interpretation: Negative Thrive Assessment: Date of Thrive Assessment Date Thrive assessed 05/29/24 05/29/24 08:09 Currently or been in a relationship where the following occur: No concerns reported Coding Level of Care Code Est Pt Level 4 (10387) Complex EM visit Add On G2211 Diagnoses Hypertension, essential I10 Dysuria R30.0 Lipid disorder E78.9 Pre-diabetes R73.03 Benzodiazepine dependence F13.20 Peripheral vascular disease I73.9 Severe episode of recurrent major depressive disorder, without psychotic features F33.2 Psychotic features: without psychotic features Severe anxiety F41.9 Additional Codes ANABEL-7 Assessment Billing - ANABEL-7 Assessment Tool: ANABEL-7 Assessment 79058 ([id number]) PHQ-9 - 23462 - PHQ-9 Billing: Yes ([id number]) Assessment & Plan Assessment & Plan (1) Hypertension, essential: Code(s): I10 - Essential (primary) hypertension Category: Medical (2) Dysuria: Code(s): R30.0 - Dysuria Category: Medical (3) Lipid disorder: Code(s): E78.9 - Disorder of lipoprotein metabolism, unspecified Category: Medical (4) Pre-diabetes: Code(s): R73.03 - Prediabetes Category: Medical (5) Benzodiazepine dependence: Code(s): F13.20 - Sedative, hypnotic or anxiolytic dependence, uncomplicated Category: Medical (6) Peripheral vascular disease: Code(s): I73.9 - Peripheral vascular disease, unspecified Category: Medical (7) Depression, major, severe recurrence: Code(s): F33.2 - Major depressive disorder, recurrent severe without psychotic features Category: Medical Qualifiers: Psychotic features: without psychotic features Qualified Code(s): F33.2 - Major depressive disorder, recurrent severe without psychotic features (8) Severe anxiety: Code(s): F41.9 - Anxiety disorder, unspecified Category: Medical Plan History of Present Illness - The patient is a 69-year-old female presenting with urinary symptoms. - She reports a recent onset of urinary discomfort characterized by sensation of incomplete voiding and mild dysuria, persisting for several weeks with no in creased frequency or hematuria. - Previously diagnosed with Vitamin D deficiency and is under supplementation. - Essential hypertension under control with current management. - On stable regimen for hyperlipidemia, compliant with smoke chaser supervision. - History of depression and anxiety, actively managed with buspirone, citalopram, and lorazepam prescribed by her psychiatrist. - Cardiology follow-up regarding a nuclear test was missed due to perceived non- necessity or coverage issues. Problem List - Vitamin D deficiency - Hypertension - Hyperlipidemia - Depression - Anxiety - Possible urinary tract infection Medications - Vitamin D supplement for Vitamin D deficiency - Antihypertensive medication for Hypertension - Cholesterol-lowering medication for Hyperlipidemia - Citalopram and Lorazepam for Depression and Anxiety through Psychiatry - Buspirone (not prescribed by this office) Diagnostic results - Vitamin D levels indicated deficiency [facility] [facility] Psych[facility] for management of depression and anxiety Review of Systems - Genitourinary: Reports sensation of incomplete bladder emptying and mild dysuria - Sleep: Reports waking frequently during sleep, typical total sleep duration of 5-6 hours General: No fever no chills neurological: No headaches no dizziness ear nose throat: No sore throat no hearing difficulty no ear pain cardiovascular: No syncope, no chest pain, no palpitations gastrointestinal: No nausea vomiting or diarrhea endocrine: No polyuria polydipsia no heat intolerance genitourinary: No dysuria skin: No new complaints Physical Exam general: No acute distress HEENT: No acute findings neck: Supple respiratory system: Able to talk in full sentences, no audible wheeze no stridor cardiovascular: S1-S2 gastrointestinal: No pain extremities: No new findings 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
== END 2024-05-29 08:40 | disposition home or self-care (01) ==
PROVIDERS: PCP Internal Medicine; Visit Provider Internal Medicine
DX: I10 Essential (primary) hypertension (principal); F13.20 Sedative, hypnotic or anxiolytic dependence, uncomplicated; I73.9 Peripheral vascular disease, unspecified; F33.2 Major depressive disorder, recurrent severe without psychotic features; R30.0 Dysuria; E78.9 Disorder of lipoprotein metabolism, unspecified; R73.03 Prediabetes; F41.9 Anxiety disorder, unspecified

== ENCOUNTER 2025-02-04 08:19 | Outpatient (AMB) | payer MEDICARE, SELFPAY ==
--- NOTE | 2025-02-04 08:30 | A.OFFVIS_ITS ---
Intake Vital Signs 02/04/25 08:31 Height 5 ft 4 in Weight 152 lb BMI 26.1 BP 110/70 Blood Pressure Location Lt brachial Position Sitting Pulse 78 Pulse Source Pulse Oximeter Temp 97.8 F Temp Source Oral Pulse Oximetry (%) 98 Intake Visit Reasons: SWV G0439 Allergies No Known Allergies Allergy (Verified 02/04/25 08:33) Medication List - Last Reconciled 02/04/25 by Demetri Thomas MD amlodipine 5 mg PO DAILY buspirone 15 mg PO TID cilostazol 100 mg PO BID 90 days citalopram 10 mg PO DAILY citalopram 40 mg PO DAILY ezetimibe-simvastatin 10-10 mg 1 tab PO DAILY famotidine (Pepcid) 20 mg PO BEDTIME lorazepam 1 mg PO BID methylcellulose (laxative) (Citrucel) 500 mg PO DAILY pantoprazole 20 mg PO DAILY sennosides (Natural Senna Laxative) 17.2 mg (2 x 8.6 mg) PO BEDTIME Do you need a note to return to daycare/school/sports/work: No HPI V G0439 HPI Details History The patient is a 69 year old female presenting with Medicare wellness and regular follow up visit Leg Pain: - Recently developed pain in the left le g. - Described as soreness when standing or walking, not present while sitting. - Not associated with back pain. - Characterized as almost like a spasm. - Potential precipitating factor discuss ed: recent purchase of a bicycle and i ncreased activity. Prediabetes: - Previous lab work was conducted in [facility]. Essential Hypertension: - Last recorded blood pressure was 110/7 0. - Regularly taking antihypertensive medi cations without side effects. - Blood pressure is well controlled. Hypercholesterolemia: - Continuation of managing cholesterol lalito ana Medical History: - Prediabetes - Essential Hypertension - Hypercholesterolemia - Anxiety - Depression - Constipation Surgical History: - Total hysterectomy due to a large karey gn cyst (exact location not specified; either ovary or uterus) Medications: - Celoxasol 100 mg BID for muscle spasm - Citalopram for anxiety and depression - Fiber supplement and Senna for constip ation Social History: - Exercises with biking and purchased an electric tricycle for safety concerns. - Consumes approximately one beer per da y and reports long-term moderate alcohol use. - Engages in household activities such a s finances, cooking, cleaning. Problem List - Leg Pain left , Posteriour thigh - Prediabetes - Essential Hypertension - Hypercholesterolemia - Anxiety - Depression - Constipation [place] [facility] Care - Established with a psychiatric medicat ion prescriber for anxiety and depression management. Patient Instructions - Undergo a blood test as due since the last was conducted in May. - To consider receiving preventative vac cinations: Prevnar 20 (pneumonia), Tdap (tetanus), and shingles vaccine. - Attend upcoming mammogram and colonosc opy appointments. - Continue medications as prescribed. - Return for follow-up within four month s. Review of Systems General: No fever no chills neurological: No headaches no dizziness ear nose throat: No sore throat no hearing difficulty no ear pain cardiovascular: No syncope, no chest pain, no palpitations gastrointestinal: No nausea vomiting or diarrhea endocrine: No polyuria polydipsia no heat intolerance genitourinary: No dysuria skin: No new complaints Physical Exam general: No acute distress HEENT: No acute findings neck: Supple respiratory system: Able to talk in full sentences, no audible wheeze no stridor cardiovascular: S1-S2 RRR gastrointestinal: No pain extremities: Pain in left leg thigh in the back, described as a soreness when walking, knee and hip joint with Full ROM CLINICAL NURSE MANAGER: Alert awake oriented x3 motor sensory intact skin: Normal turgor HPI Comments History of Present Illness Details AWV Medical/social history reviewed Past medical history reviewed [place] of care / care team list updated Surgical/ hospitalization history reviewed Current medications including OTC and supplements reviewed Family history reviewed Tobacco controlled form updated Alcohol use form updated Illicit drug use in social history reviewed Current diagnosis of depression ?screening updated Appropriate PHQ 2/PHQ-9 completed . Vital signs reviewed Alcohol tobacco drug use reviewed and discussed . MMSE completed . ? Fall risk: ?Assessed Fall history: ?None Have you had any falls with injury in the past year?? No Have you had 2 or more falls in the past year?? No Fall risk assessment completed Home safety discussed with the patient Functional ability assessed and discussed and documented Activities of daily living reviewed and appropriate actions taken . HRA filled out by the patient and reviewed by provider and scanned . Appropriate written screening schedule established . Any health advise needed provided . Advance care planning discussed with the patient , necessary paperwork filled Examination IPPE/AWE: Balance intact Romberg intact Tandem walk failed walk-in turn intact rise from sit to stand intact . ?Hearing ?whisper test pass . Medication list reviewed, patient is stable on medications All other providers patient is seeing discussed and noted . PFSH Surgical History (Updated 02/04/25 @ 08:34 by Jarek Mckenna CMA) S/P CRYSTAL (total abdominal hysterectomy) Family History Brother Heart attack Sister Heart attack Father Diabetes Mother Mental health disorder Other Substance use disorder Social History Housing: House Patient Tobacco Use Status: Former Tobacco user e-Cigarette/Vaping Use: Never Used service: Yes Current occupational status: retired Cognitive needs: No Hearing needs: No Vision needs: Yes Questionnaire Medicare Wellness Checkup What [age] What gender do you identify with?: female During the past 4 weeks, how much have you been bothered by emotional problems such as feeling anxious, depressed, irritable, sad or downhearted, and blue?: moderately During the past 4 weeks, has your physical & emotional health limited your social activities with family, friends, neighbors, or groups?: not at all During the past 4 weeks, how much bodily pain have you generally had?: moderate pain During the past 4 weeks, was someone available to help you if you needed & wanted help?: yes, as much as I wanted During the past 4 weeks, what was the hardest physical activity you could do for at least 2 minutes?: moderate Can you get to places out of walking distance without help? (For eg., can you travel alone on buses, taxis or drive your car?): Yes Can you go shopping for groceries or clothes without someone's help?: Yes Can you prepare your own meals?: Yes Can you do your housework without help?: Yes Because of any health problems, do you need the help of another person with your personal care needs such as eating, bathing, dressing or getting around the house?: No Can you handle your own money without help?: Yes During the past 4 weeks, how would you rate your health in general?: good During the past 4 weeks how have things been going for you?: pretty well Are you having difficulties driving your car?: no Do you always fasten your seat belt when you are in a car?: yes, usually During past 4 weeks, have you been bothered by the following: never: Falling or dizzy when standing up, Sexual problems?, Trouble eating well?, Teeth or denture problems?, Problems using the telephone? and Tiredness or fatigue? Have you fallen 2 or more times in the past year?: No Are you afraid of falling?: No Are you a smoker?: no During the past 4 weeks, how many drinks of wine, beer, or other alcoholic beverages did you have?: 2-5 drinks per week Do you exercise for about 20 minutes 3 or more times a week?: no, I usually do not exercise this much Have you been given information to help with the following?: yes: Keeping track of your medications? and no: Hazards in your house that might hurt you? How often do you have trouble taking medicines the way you have been told to take them?: I always take medicine as prescribed How confident are you that you can control & manage most of your health problems?: very confident What is your race?: White Mini Mental State Exam (MMSE) Orientation What is the (year) (season) (date) (day) (month)?: year, season, date, day and month Where are we (state) (county) (town or city) (hospital) (floor)?: state, county, town or city, hospital/clinic and floor Score Score: 10 Activity of Daily Living Bathing - sponge bath, tub bath or shower: receives no assistance (gets in/out by self, if usual bathing means Dressing - getting clothes from closets & drawers, including inner/outer garments & fasteners.: gets clothes & gets completely dressed without help Toileting - going to the 'toilet room' for urine/bowel elimination & cleaning self/arranging clothes: goes to toilet room, cleans self, arranges clothes without help Transfer: moves in & out of bed and chair without help (may use support object) Continence: controls urination/bowel movements completely by self Feeding: feeds self without help Total Score: 0 Information obtained from: patient Using telephone: independent Traveling: independent Shopping: independent Preparing meals: independent Housework: independent Taking medicine: independent Managing money: independent PHQ-9 Over the last 2 weeks, how often have you been bothered by any of the following problems? 1. Little interest or pleasure in doing things: several days 2. Feeling down, depressed, or hopeless: several days 3. Trouble falling or staying asleep, or sleeping too much: several days 4. Feeling tired or having little energy: several days 5. Poor appetite or overeating: not at all 6. Feeling bad about yourself - or that you are a failure or have let yourself or your family down: several days 7. Trouble concentrating on things, such as reading the newspaper or watching television: not at all 8. Moving or speaking so slowly that other people could have noticed. Or the opposite - being so fidgety or restless that you have been moving around a lot more than usual: not at all 9. Thoughts that you would be better off or of hurting yourself in some way: not at all Total score: 5 Depression Screening Interpretation: Negative Depression Screening Done: Yes 51424 - PHQ-9 Billing: Yes Source: Developed by Drs. Xiang Arguelles, Karol Powell, Martir Jones and colleagues, with an educational elsa from [employer]. ANABEL-7 AMB Questionnaire ANABEL-7 Date ANABEL - 7 assessed: 05/29/24 Feeling nervous, anxious, or on edge: 1 = Several days Not being able to stop or control worryin = Several days Worrying too much about different things: 1 = Several days Trouble relaxin = Several days Being so restless that it is hard to sit still: 1 = Several days Becoming easily annoyed or irritable: 1 = Several days Feeling afraid as if something awful might happen: 1 = Several days Total ANABEL-7 score (0-4 normal; 5-9 mild; 10-14 moderate; 15-21 severe): 7 Source: Developed by Drs. Xiang Arguelles, Martir Villaseñor and colleagues, with an educational elsa from [employer]. ANABEL-7 Assessment Billing ANABEL-7 Assessment Tool: ANABEL-7 Assessment 12438 Physical Exam Vital Signs: Last Vital Signs Temp 97.8 F 02/04/25 08:31 Pulse 78 02/04/25 08:31 BP 110/70 02/04/25 08:31 Pulse Ox 98 02/04/25 08:31 BMI result Body Mass Index 26.1 Assessment & Plan Assessment & Plan (1) Pain in left thigh: Code(s): M79.652 - Pain in left thigh (2) Medicare annual wellness visit, subsequent: Code(s): Z00.00 - Encounter for general adult medical examination without abnormal findings (3) Hypertension, essential: Code(s): I10 - Essential (primary) hypertension (4) Lipid disorder: Code(s): E78.9 - Disorder of lipoprotein metabolism, unspecified (5) Peripheral vascular disease: Code(s): I73.9 - Peripheral vascular disease, unspecified (6) Pre-diabetes: Code(s): R73.03 - Prediabetes (7) Depression, major, severe recurrence: Code(s): F33.2 - Major depressive disorder, recurrent severe without psychotic features Qualifiers: Psychotic features: without psychotic features Qualified Code(s): F33.2 - Major depressive disorder, recurrent severe without psychotic features (8) Severe anxiety: Code(s): F41.9 - Anxiety disorder, unspecified (9) Benzodiazepine dependence: Code(s): F13.20 - Sedative, hypnotic or anxiolytic dependence, uncomplicated Plan History The patient is a 69 year old female presenting with Medicare wellness and regular follow up visit Leg Pain: - Recently developed pain in the left leg. - Described as soreness when standing or walking, not present while sitting. - Not associated with back pain. - Characterized as almost like a spasm. - Potential precipitating factor discussed: recent purchase of a bicycle and increased activity. Prediabetes: - Previous lab work was conducted in May. Essential Hypertension: - Last recorded blood pressure was 110/70. - Regularly taking antihypertensive medications without side effects. - Blood pressure is well controlled. Hypercholesterolemia: - Continuation of managing cholesterol levels Medical History: - Prediabetes - Essential Hypertension - Hypercholesterolemia - Anxiety - Depression - Constipation Surgical History: - Total hysterectomy due to a large benign cyst (exact location not specified; either ovary or uterus) Medications: - Celoxasol 100 mg BID for muscle spasm - Citalopram for anxiety and depression - Fiber supplement and Senna for constipation Social History: - Exercises with biking and purchased an electric tricycle for safety concerns. - Consumes approximately one beer per day and reports long-term moderate alcohol use. - Engages in household activities such as finances, cooking, cleaning. Problem List - Leg Pain left , Posteriour thigh - Prediabetes - Essential Hypertension - Hypercholesterolemia - Anxiety - Depression - Constipation [place] [facility] Care - Established with a psychiatric medication prescriber for anxiety and depression management. Patient Instructions - Undergo a blood test as due since the last was conducted in May. - To consider receiving preventative vaccinations: Prevnar 20 (pneumonia), Tdap (tetanus), and shingles vaccine. - Attend upcoming mammogram and colonoscopy appointments. - Continue medications as prescribed. - Return for follow-up within four months. Orders: Orders Complete Blood Count Auto Diff Today E78.9 - Disorder of lipoprotein metabolism, unspecified, F13.20 - Sedative, hypnotic or anxiolytic dependence, uncomplicated, F33.2 - Major depressive disorder, recurrent severe without psychotic features, F41.9 - Anxiety disorder, unspecified, I10 - Essential (primary) hypertension, I73.9 - Peripheral vascular disease, unspecified, R29.6 - Repeated falls, R73.03 - Prediabetes Comprehensive Met. Panel Today E78.9 - Disorder of lipoprotein metabolism, unspecified, F13.20 - Sedative, hypnotic or anxiolytic dependence, uncomplicated, F33.2 - Major depressive disorder, recurrent severe without psychotic features, F41.9 - Anxiety disorder, unspecified, I10 - Essential (primary) hypertension, I73.9 - Peripheral vascular disease, unspecified, R29.6 - Repeated falls, R73.03 - Prediabetes Hemoglobin A1c Today E78.9 - Disorder of lipoprotein metabolism, unspecified, F13.20 - Sedative, hypnotic or anxiolytic dependence, uncomplicated, F33.2 - Major depressive disorder, recurrent severe without psychotic features, F41.9 - Anxiety disorder, unspecified, I10 - Essential (primary) hypertension, I73.9 - Peripheral vascular disease, unspecified, R29.6 - Repeated falls, R73.03 - Prediabetes MM tomosynthesis screening BI Today Z12.31 - Encounter for screening mammogram for malignant neoplasm of breast LDL Cholesterol Direct Today E78.9 - Disorder of lipoprotein metabolism, unspecified, F13.20 - Sedative, hypnotic or anxiolytic dependence, uncomplicated, F33.2 - Major depressive disorder, recurrent severe without psychotic features, F41.9 - Anxiety disorder, unspecified, I10 - Essential (primary) hypertension, I73.9 - Peripheral vascular disease, unspecified, R29.6 - Repeated falls, R73.03 - Prediabetes Quality Reporting (2019) Depression/Bipolar (159/160/161/177) PHQ-9: Total score: 5 Coding Level of Care Code Medicare Subsequent (G0439) Est Pt Level 4 (04235) Diagnoses Pain in left thigh M79.652 Medicare annual wellness visit, subsequent Z00.00 Hypertension, essential I10 Lipid disorder E78.9 Peripheral vascular disease I73.9 Pre-diabetes R73.03 Severe episode of recurrent major depressive disorder, without psychotic features F33.2 Psychotic features: without psychotic features Severe anxiety F41.9 Benzodiazepine dependence F13.20 Additional Codes PHQ-9 - 21105 - PHQ-9 Billing: Yes ([id number]) ANABEL-7 Assessment Billing - ANABEL-7 Assessment Tool: ANABEL-7 Assessment 76943 ([id number]) Advance Care Planning Advance Care Planning discussion: Declined forms
[2025-02-04 08:31] VITALS: BP 110/70; PULSE 78; TEMP 36.6; O2SAT 98; BMI 26.1
--- OUTSIDE RECORDS SUMMARY | 2025-02-04 09:43 | XMS_ITS | Encounter Summary ---
Author Organization [facility] Address [address] [place] [address] Care Team Providers Care End Touching Machine Operator Name Role Phone Summer Mott MD Primary Care Provider Encounter Details Date Type Department Care Team (Late st Contact Info) Description 02/12/2021 Abstract [facility] Primary Care [place] [address] [facility] [address] [place] [phone] Harper JainGarfield, [place] [address] [facility] [address] [place] [address] Social History Tobacco Use Types Packs/Day Years Used Date Smoking Tobacco: Never Assessed PHQ-2 Answer Date Recorded PHQ-2 Total Score 5 02/15/2021 Comments Unknown Sex and Gender Information Value Date Recorded Sex Assigned at Not on file Legal Sex Female 8:22 PM EDT Gender Identity Not on file Sexual Orientation Not on file COVID-19 Exposure Response Date Recorded In the last month, have you been in contact with someone who was confirmed or suspected to have Coronavirus / COVID-19? No / Unsure 02/15/2021 7:34 AM EDT documented as of this encounter Plan of Treatment Not on file documented as of this encounter Visit Diagnoses Not on filedocumented in this encounter Care Teams End Touching Machine Operator Relationship Specialty Start Date End Date Summer Mott MD PCP - General Internal Medicine 09/30/20 04/13/23 documented as of this encounter
--- OUTSIDE RECORDS SUMMARY | 2025-02-04 09:43 | XMS_ITS | Clinical Summary ---
Author Organization [facility] it Address [address] [place] [address] Care Team Providers Care Long Goods Drier Name Role Phone Unavailable Primary Care Provider Unavailabl e Social History Tobacco Use Types Packs/Day Years Used Date Smoking Tobacco: Never Assessed Comments Unknown Sex and Gender Information Value Date Recorded Sex Assigned at Not on file Legal Sex Female 6:31 PM EST Gender Identity Not on file Sexual Orientation Not on file Plan of Treatment Health Maintenance Due Date Last Done Comments DTaP,Tdap,and Td Vaccines (1 - Tdap) 1975 Pneumococcal Vaccine: 50+ Years (1 of 1 - PCV) 2006 Zoster Vaccines (1 of 2) 2006 Breast Cancer Screening 09/30/2023 09/30/19, 06/27/2018 Depression Screening 05/22/2024 COVID-19 Vaccine (1 - 2023-2 5 season) 2025 Influenza Vaccine (#1) 2025 RSV Immunization Adult Patients (1 - 1-dose 75+ series) 2031 HIB Vaccines Aged Out No longer eligi ble based on patient's age to complete this topic HPV Vaccines Aged Out No longer eligi ble based on patient's age to complete this topic Hepatitis A Vaccines Aged Out No long er eligible based on patient's age to complete this topic Hepatitis B Vaccines Aged Out No long er eligible based on patient's age to complete this topic IPV Vaccines Aged Out No longer eligi ble based on patient's age to complete this topic MMR Vaccines Aged Out No longer eligi ble based on patient's age to complete this topic Meningococcal ACWY Vaccine Aged Out N o longer eligible based on patient's age to complete this topic Meningococcal B Vaccine Aged Out No l onger eligible based on patient's age to complete this topic RSV Immunization Patients Under 20 months Aged Out No longer eligible b ased on patient's age to complete this topic Varicella Vaccines Aged Out No longer eligible based on patient's age to complete this topic Procedures Procedure Name Priority Date/Time Associated Diagnosis Comments [facility] SCREEN[facility]IGITAL Routine 09/29/2021 1:13 PM EDT Encounter for screening mammogram for malignant neoplasm of breast from Last 3 Months or Most Recently Relevant to Health Maintenance Results * [facility] SCREEN[facility] (09/29/2021 1:13 PM EDT) Anatomical Region Laterality Modality Mammography 09/29/2021 9:24 AM EDT Narrative 09/29/2021 1:13 PM EDT [facility] Diagnostic Imaging Department [address] [place] [address] Patient: INDIGO BOYER Danica /Age/Sex: 1955 - 66 - F Unit#: [id number] Location/Status: [facility]/REG CLI Mnemonic/Ordering Site: [facility] Ordering Physician: FAY CHE MD [facility] Screening Digital - 09/29/21 - 1017 INDICATION: SCREENING COMPARISON: [facility] mammograms dating back to 10/01/2011 TECHNIQUE: CC and MLO views of the breasts were obtained, using full field digital mammography with 3D tomosynthesis views in the MLO projection. XCCL view of the right breast was obtained. Computer aided detection with the GloNav 7.2-H was employed. FINDINGS: The breasts are almost entirely composed of fat. No suspicious masses, suspicious microcalcifications, or areas of architectural distortion are identified. There are no secondary signs of breast malignancy. Rare benign-appearing breast and vascular type calcifications are present bilaterally. IMPRESSION: No specific mammographic evidence of breast malignancy. Lack of an imaging correlate should not deter or delay biopsy of a clinically significant palpable finding. BI-RADS - Category 2 - Benign finding 3342F, 7025F Annual screening mammography is recommended. Patient entered into a reminder system with a target date for the next mammogram. [id number] / [id number]) , [id number] Dictating Physician: LION DONNELLY MD Electronically Signed by: LION DONNELLY MD Dic Date/Time: 09/29/21 1310 Sign date/Time: 09/29/21 1313 Procedure Note Lion Donnelly MD - 05/11/2022 [facility] Diagnostic Imaging Department [address] [place] [address] Patient: INDIGO BOYER Danica /Age/Sex: 1955 - 66 - F Unit#: [id number] Location/Status[facility]/Ordering Site: [facility] Ordering Physician: FAY CHE MD [facility] Screening Digital - 09/29/21 - 1017 INDICATION: SCREENING COMPARISON: [facility] mammograms dating back to 10/01/2011 TECHNIQUE: CC and MLO views of the breasts were obtained, using full field digital mammography with 3D tomosynthesis views in the MLO projection. XCCL viewof the right breast was obtained. Computer aided detection with the GloNav 7.2-H was employed. FINDINGS: The breasts are almost entirely composed of fat. No suspicious masses, suspicious microcalcifications, or areas ofarchitectural distortion are identified. There are no secondary signs of breastmalignancy. Rare benign-appearing breast and vascular type calcifications arepresent bilaterally. IMPRESSION: No specific mammographic evidence of breast malignancy. Lack of an imaging correlate should not deter or delay biopsy of aclinically significant palpable finding. BI-RADS - Category 2 - Benign finding 3342F, 7025F Annual screening mammography is recommended. Patient entered into a reminder system with a target date for the next mammogram. [id number] , [id number] Dictating Physician: LION DONNELLY MD Electronically Signed by: LION DONNELLY MD Dic Date/Time: 09/29/21 1310 Sign date/Time: 09/29/21 1313 Fay Che MD IMG BI PROCEDURES Final Resu lt from Last 3 Months or Most Recently Relevant to Health Maintenance
--- OUTSIDE RECORDS SUMMARY | 2025-02-04 09:43 | XMS_ITS | Encounter Summary ---
Author Organization Formerly [facility] Address [address] [place] [address] Care Team Providers Care Public Health Representative Name Role Phone Summer Mott MD Primary Care Provider Encounter Details Date Type Department Care Team (Late st Contact Info) Description 01/12/2021 Scanned Document [facility] ORTHO SURGERY SCAN Orthopedic Surgery, Scan Social History Tobacco Use Types Packs/Day Years Used Date Smoking Tobacco: Never Assessed Comments Unknown Sex and Gender Information Value Date Recorded Sex Assigned at Not on file Legal Sex Female 8:22 PM EDT Gender Identity Not on file Sexual Orientation Not on file documented as of this encounter Plan of Treatment Not on file documented as of this encounter Visit Diagnoses Not on filedocumented in this encounter Care Teams Public Health Representative Relationship Specialty Start Date End Date Summer Mott MD PCP - General Internal Medicine 09/30/20 04/13/23 documented as of this encounter
--- OUTSIDE RECORDS SUMMARY | 2025-02-04 09:43 | XMS_ITS | Encounter Summary ---
Author Organization [facility] Address [address] [place] [address] Care Team Providers Care Coat Baster Name Role Phone Summer Mott MD Primary Care Provider Encounter Details Date Type Department Care Team (Late st Contact Info) Description 10/16/2020 Scanned Document [facility] PATHOLOGY SCAN Pathology, Scan Social History Tobacco Use Types Packs/Day [...] on filedocumented in this encounter Care Teams Coat Baster Relationship Specialty Start Date End Date Summer Mott MD PCP - General Internal Medicine 09/30/20 04/13/23 documented as of this encounter
--- OUTSIDE RECORDS SUMMARY | 2025-02-04 09:43 | XMS_ITS | Encounter Summary ---
Author Organization [facility] Address [address] [place] [address] Care Team Providers Care Poultice Machine Operator Name Role Phone Summer Mott MD Primary Care Provider Reason for Visit * Reason Comments Medication Refill Encounter Details Date Type Department Care Team (Late st Contact Info) Description 09/26/2021 Refill [facility] Primary Care [address] [phone] Summer Mott MD [address] [address] Other hyperlipidemia; Hypertension, unspecified type; Anxiety Social History Tobacco Use Types Packs/Day Years Used Date Smoking Tobacco: Former Smokeless Tobacco: Never Alcohol Use Standard Drinks/Week Comments Yes 0 (1 standard drink = 0.6 oz pur e alcohol) Occasional PHQ-2 Answer Date Recorded PHQ-2 Total Score 5 02/15/2021 Comments Unknown Sex and Gender Information Value Date Recorded Sex Assigned at Not on file Legal Sex Female 8:22 PM EDT Gender Identity Not on file Sexual Orientation Not on file documented as of this encounter Plan of Treatment Not on file documented as of this encounter Visit Diagnoses Diagnosis Other hyperlipidemia Hypertension, unspecified type Anxiety Anxiety state, unspecified documented in this encounter Care Teams Poultice Machine Operator Relationship Specialty Start Date End Date Summer Mott MD PCP - General Internal Medicine 09/30/20 04/13/23 documented as of this encounter
--- OUTSIDE RECORDS SUMMARY | 2025-02-04 09:43 | XMS_ITS ---
Author Name [facility] Organization Unknown Care Team Organization Name Specialty Phone Email Start Date End [facility]
--- OUTSIDE RECORDS SUMMARY | 2025-02-04 09:43 | XMS_ITS | Encounter Summary ---
Author Organization [facility] Address [address] [place] [address] Care Team Providers Care Insole And Outsole Preparer Name Role Phone Summer Mott MD Primary Care Provider [phone] Encounter Details Date Type Department Care Team (Late st Contact Info) Description 02/16/2021 Scanned Document [facility] ORTHO SURGERY SCAN Orthopedic Surgery, Scan Social [...] on filedocumented in this encounter Care Teams Insole And Outsole Preparer Relationship Specialty Start Date End Date Summer Mott MD PCP - General Internal Medicine 09/30/20 04/13/23 documented as of this encounter
--- OUTSIDE RECORDS SUMMARY | 2025-02-04 09:43 | XMS_ITS | Encounter Summary ---
Author Organization [facility]ly [facility] Address [address] [place] [address] Care Team Providers Care Camp Maintenance Supervisor Name Role Phone Summer Mott MD Primary Care Provider Encounter Details Date Type Department Care Team (Late st Contact Info) Description 02/15/2021 Scanned Document [facility] PRIMARY CARE SCAN Primary Care, Scan Social History Tobacco Use Types Packs/Day [...] on filedocumented in this encounter Care Teams Camp Maintenance Supervisor Relationship Specialty Start Date End Date Summer Mott MD PCP - General Internal Medicine 09/30/20 04/13/23 documented as of this encounter
--- OUTSIDE RECORDS SUMMARY | 2025-02-04 09:43 | XMS_ITS | Encounter Summary ---
Author Organization [facility] Address [address] [place] [address] Care Team Providers Care Canine Deputy Name Role Phone Summer Mott MD Primary Care Provider Encounter Details Date Type Department Care Team (Late st Contact Info) Description 10/16/2020 Scanned Document [facility] PATHOLOGY SCAN Summer Mott MD [address] [place] [address] Social History Tobacco Use Types Packs/Day Years [...] on filedocumented in this encounter Care Teams Canine Deputy Relationship Specialty Start Date End Date Summer Mott MD PCP - General Internal Medicine 09/30/20 04/13/23 documented as of this encounter
--- OUTSIDE RECORDS SUMMARY | 2025-02-04 09:43 | XMS_ITS | Encounter Summary ---
Author Organization [facility] Address [address] [place] [address] Care Team Providers Care Ambulance Assistant Name Role Phone Summer Mott MD Primary Care Provider Reason for Visit * Reason Comments Medication Refill Encounter Details Date Type Department Care Team (Late st Contact Info) Description 12/04/2022 Refill [facility] Primary Care [address] [phone] Summer Mott MD [address] [address] Thromboangiitis obliterans (Buerger's disease) ([facility]) Social History Tobacco Use Types Packs/Day Years [...] as of this encounter Visit Diagnoses Diagnosis Thromboangiitis obliterans (Buerger's disease) documented in this encounter Care Teams Ambulance Assistant Relationship Specialty Start Date End Date Summer Mott MD PCP - General Internal Medicine 09/30/20 04/13/23 documented as of this encounter
--- OUTSIDE RECORDS SUMMARY | 2025-02-04 09:43 | XMS_ITS | Encounter Summary ---
Author Organization [facility] Address [address] [place] [address] Care Team Providers Care Cleaner Signs Name Role Phone Summer Mott MD Primary Care Provider [phone] Encounter Details Date Type Department Care Team (Late st Contact Info) Description 10/26/2020 Scanned Document [facility] GYNECOLOGY SCAN Gynecology, Scan Social History Tobacco Use Types Packs/Day [...] on filedocumented in this encounter Care Teams Cleaner Signs Relationship Specialty Start Date End Date Summer Mott MD PCP - General Internal Medicine 09/30/20 04/13/23 documented as of this encounter
--- OUTSIDE RECORDS SUMMARY | 2025-02-04 09:43 | XMS_ITS | Clinical Summary ---
Author Organization [facility] Address [address] [place] [address] Care Team Providers Care Progress Man Name Role Phone Unavailable Primary Care Provider Unavailabl e Allergies No known active allergies Medications LORazepam (ATIVAN) 1 MG tabletIndications:A nxiety TAKE ONE TABLET BY MOUTH THREE TIMES A DAY 90 tablet 2 Active amLODIPine (NORVASC) 5 MG tabletIndications:H ypertension, unspecified type TAKE ONE TABLET BY MOUTH EVERY DAY 90 tablet 1 2 Active ezetimibe-simvastat in (VYTORIN) 10-10 MG per tabletIndications:O ther hyperlipidemia TAKE ONE TABLET BY MOUTH EVERY DAY 90 tablet 1 2 Active citalopram (CeleXA) 40 MG tabletIndications:A nxiety TAKE ONE TABLET BY MOUTH EVERY DAY 90 tablet 1 2 Active cilostazol (PLETAL) 100 MG tabletIndications:T hromboangiitis obliterans (Buerger's disease) TAKE ONE TABLET BY MOUTH TWICE A DAY 30 MINUTES BEFORE OR 2 HOURS AFTER MEALS (BREAKFAST AND DINNER) 60 tablet 3 Active Immunizations Immunization Administration Dates Next Due Covid-19 MRNA Vaccine - Pfizer 12+ (Purple Cap) 09/26/2020,09/05/2020 Influenza, Unspecified 04/26/2017 Tdap 05/22/2012 Family History Medical History Relation Name Comments Diabetes Father Relation Name Status Comments Father Social History Tobacco Use Types Packs/Day Years [...] on file Sexual Orientation Not on file Last Filed Vital Signs Vital Sign Reading Time Taken Comments Blood Pressure 130/88 02/15/2021 7:40 AM EDT Pulse 69 02/15/2021 7:40 AM EDT Temperature 36.5 C (97.7 F) 02/15/2021 7:40 AM EDT Respiratory Rate 14 02/15/2021 7:40 AM EDT Oxygen Saturation 96% 02/15/2021 7:40 AM EDT Inhaled Oxygen Concentration - - Weight 61.2 kg (135 lb) 02/15/2021 7:40 AM EDT Height 156.8 cm (5' 1.75 ) 02/15/2021 7:40 AM ED T Body Mass Index 24.89 02/15/2021 7:40 AM EDT Plan of Treatment Health Maintenance Due Date Last Done Comments Advance Care Planning 1955 Hepatitis C Virus Screening 1955 Pneumococcal Vaccines 50+ (1 of 1 - PCV) 2006 Zoster (Shingles) Vaccine (1 of 2) 2006 DTaP/Tdap/Td Vaccines (2 - Td or Tdap) 05/22/2022 05/22/2012 COVID-19 Vaccine (3 - season) 2025 09/26/2020, 09/05/2020 RSV Vaccine 60 years and older and Patients (1 - 1-dose 75+ series) 2031 Influenza Vaccine Discontinued 04/26/2017 Hepatitis B Vaccines Aged Out No long er eligible based on patient's age to complete this topic
== END 2025-02-04 08:56 | disposition home or self-care (01) ==
LOC: HO.HMCC 08:20
PROVIDERS: PCP Internal Medicine; Visit Provider Internal Medicine
DX: Z00.00 Encounter for general adult medical examination without abnormal findings (principal); R29.6 Repeated falls; F33.2 Major depressive disorder, recurrent severe without psychotic features; F13.20 Sedative, hypnotic or anxiolytic dependence, uncomplicated; M79.652 Pain in left thigh; I10 Essential (primary) hypertension; E78.9 Disorder of lipoprotein metabolism, unspecified; I73.9 Peripheral vascular disease, unspecified; R73.03 Prediabetes; F41.9 Anxiety disorder, unspecified

== ENCOUNTER 2025-02-04 08:19 | Outpatient (REF) | payer MEDICARE, SELFPAY ==
[2025-02-04 10:43] LABS: MANUAL DIFF FLAG NO
[2025-02-04 11:21] LABS: Hematocrit 38.4 % (37.0-47.0); Hemoglobin 12.9 g/dl (12.0-16.0); Imm Gran Abs Auto 0.07 X10*3/uL (0.00-0.03); Imm Gran Pct Auto 0.6 % (0.0-0.4); Lymphocytes Absolute Auto 3.0 X10*3/uL (1.2-4.9); Mean Corpuscular HGB Conc 33.6 g/dl (31.0-35.0); Mean Corpuscular Hemoglobin 34.0 pg (27.0-33.0); Mean Corpuscular Volume 101.3 fL (80.0-98.0); NRBC Abs Auto 0.000 X10*3/uL (0.0-0.012); NRBC Pct Auto 0.0 /100WBC (0.0-0.2); Platelet Count 323 X10*3/uL (160-400); Red Blood Count 3.79 X10*6/uL (4.20-5.50); White Blood Count 12.3 X10*3/uL (4.8-10.8)
[2025-02-04 11:56] LABS: Alanine Aminotransferase 13 U/L (0-31); Albumin Level 4.7 g/dL (3.5-5.0); Alkaline Phosphatase 91 U/L (39-117); Anion Gap 14 (12-20); Aspartate Amino Transferase 21 U/L (5-31); Blood Urea Nitrogen 13 mg/dL (9-16); Calcium 9.5 mg/dL (8.4-10.2); Carbon Dioxide 23 mmol/L (22-29); Chloride 108 mmol/L (96-108); Estimated Glomerular Filt Rate > 60; Potassium 4.8 mmol/L (3.3-5.1); Sodium 140 mmol/L (135-145); Total Protein 7.3 g/dL (6.5-8.0)
== END 2025-02-04 08:20 | disposition home or self-care (01) ==
LOC: HO.HMGCLDS 08:19
PROVIDERS: PCP Internal Medicine; Visit Provider Internal Medicine
DX: Z00.00 Encounter for general adult medical examination without abnormal findings (principal); M79.652 Pain in left thigh; I10 Essential (primary) hypertension; E78.9 Disorder of lipoprotein metabolism, unspecified; I73.9 Peripheral vascular disease, unspecified; R73.03 Prediabetes; F33.2 Major depressive disorder, recurrent severe without psychotic features; F41.9 Anxiety disorder, unspecified; F13.20 Sedative, hypnotic or anxiolytic dependence, uncomplicated; R29.6 Repeated falls
CPT/HCPCS: 36415; 80053; 83036; 83721; 85025; 96127; 99212